=== PATIENT | male | born 1930 | race Caucasian/White ===

== ENCOUNTER 2017-07-09 14:12 | Inpatient (IN) | payer MEDICARE ==
[2016-05-09 17:12] VITALS: Ht 175.3 cm; Wt 74.8 kg
[~2017-07-09] VITALS: Ht 175.3 cm; Wt 74.8 kg
[~2017-07-09 14:12] MED LIST changes: -DILT240C76
[2017-07-09] MEDS ORDERED: NS(*) 0.9% 1000 ML BAG 1,000 ML IV ONE (14:20)
--- NOTE | 2017-07-09 14:23 | ER Report ---
History and Physical Time Seen By MD: 14:22 Hx. of Stated Complaint: from urgent care with possible pneumonia and atrial flutter, "im having trouble taking deep breaths" HPI/ROS 86 year old male sent in from urgent care. [place] today weak unable to get out of bed low grade temp, fever chills cough , difficult to take a breath Remainder of the 14 system rev: Yes (mode on) Allergies: Coded Allergies: Sulfa (Sulfonamide Antibiotics) (Verified Allergy, Severe, 01/25/11) Home Meds Active Scripts Diltiazem Hcl (DILTIAZEM 24HR CD) 240 Mg Cap.er.24h, 1 CAP PO DAILY for 90 Days , #90 CAP.SR.24H 4 Refills Prov:DENISE LUONG MD 05/28/17 Hydrochlorothiazide (HYDROCHLOROTHIAZIDE) 12.5 Mg Capsule, 1 TAB PO QDAY, #90 CAPSULE 4 Refills Prov:DRE LINARES MD 02/27/17 Reported Medications Omeprazole (OMEPRAZOLE) 20 Mg Tablet.dr, 20 MG PO QDAY, TAB 07/09/17 [Brain-Protex] No Conflict Check, 1 TAB PO DAILY 05/08/16 [Skeletal Strength] No Conflict Check, 1 TAB PO DAILY 05/08/16 [Super Supplemental] No Conflict Check, 1 TAB PO DAILY 05/08/16 Gelatin (GELATIN) 600 Mg Capsule, 1300 MG PO DAILY, CAPSULE 05/08/16 Discontinued Reported Medications Diltiazem Hcl (DILTIAZEM 24HR ER) 240 Mg Cap.er.24h 07/09/17 Ranitidine Hcl (ZANTAC) 150 Mg Tablet, 1 TAB PO HS 05/23/17 Psyllium Husk (Metamucil) 3.4 Gram/5.4 Gram Powder, QDAY 10/23/16 Fish Oil/Vit E/Fat No.5/Hc137 (SUPER OMEGA-3 SOFTGEL) 1 Each Capsule, 1 EACH PO DAILY, CAPSULE 05/08/16 Past Medical/Surgical History History of hearing loss, 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 97 104 Resp 18 14 B/P (MAP) 165/129 (141) 165/129 Pulse Ox 97 97 O2 Delivery Nasal Cannula 07/09/17 07/09/17 07/09/17 07/09/17 14:30 14:42 14:45 14:45 Pulse 101 97 Resp 18 17 B/P (MAP) 144/102 (116) Pulse Ox 97 97 O2 Delivery Nasal Cannula O2 Flow Rate 2.0 07/09/17 07/09/17 07/09/17 07/09/17 14:45 14:52 14:57 15:00 Pulse 112 101 Resp 19 17 B/P (MAP) 153/103 (120) 153/96 (115) Pulse Ox 97 07/09/17 07/09/17 07/09/17 07/09/17 15:12 15:15 15:27 15:42 Pulse 101 102 ??? Resp 15 16 B/P (MAP) 150/107 (121) Pulse Ox 97 07/09/17 07/09/17 07/09/17 07/09/17 15:57 16:00 16:05 16:15 Pulse 97 97 Resp 15 16 B/P (MAP) 145/95 (112) 168/115 (132) Pulse Ox 97 97 07/09/17 07/09/17 07/09/17 07/09/17 16:20 16:30 16:35 16:45 Pulse 101 101 Resp 14 25 B/P (MAP) 143/108 (120) 145/89 (107) Pulse Ox 97 07/09/17 07/09/17 07/09/17 07/09/17 16:50 17:00 17:05 17:15 Pulse 85 83 Resp 16 8 B/P (MAP) 145/102 (116) 158/124 (135) 07/09/17 17:20 Pulse 77 Resp 10 Intake and Output 07/09/17 07/09/17 07/10/17 15:00 23:00 07:00 Intake Total 1000 ml Balance 1000 ml Physical Exam 86-year-old male alert anxious mild distress HEENT head normocephalic atraumatic tympanic membranes are non-reddened throat is non-reddened mucous membranes are dry neck is supple no JVD heart rate is regular no murmurs rubs and gallops lungs coarse bilaterally abdomen is soft bowel sounds 4 moves all extremities no peripheral edema Medical Decision Making Data Points Laboratory Hematology Test 07/09/17 13:47 07/09/17 14:41 07/09/17 15:55 Prothrombin Time 14.0 seconds (12.0-14.4) Prothromb Time International Ratio 1.08 Activated Partial Thromboplast Time 33 seconds (23-35) Magnesium Level 1.8 mg/dl (1.7-2.2) Lactate 1.2 mmol/L (0.7-2.1) Urine Color Straw Urine Clarity Clear Urine pH 7.0 pH (4.8-9.5) Urine Specific [place] 1.011 Urine Protein Negative mg/dL (NEGATIVE) Urine Glucose (UA) Negative mg/dL (NEGATIVE) Urine Ketones 20 mg/dL (NEGATIVE) Urine Blood Negative (NEGATIVE) Urine Nitrite Negative (NEGATIVE) Urine Bilirubin Negative (NEGATIVE) Urine Urobilinogen Negative mg/dL (0.2-1.9) Urine Leukocyte Esterase Negative (NEGATIVE) Urine RBC <1 /HPF (0-2/HPF) Urine WBC 1 /HPF (0-5/HPF) Urine Squamous Epithelial Cells Moderate /LPF (</=FEW) Urine Bacteria Negative /HPF (NONE-FEW) Urine Mucus None /HPF (NONE-FEW) Chemistry Test 07/09/17 13:47 07/09/17 14:41 07/09/17 15:55 Prothrombin Time 14.0 seconds (12.0-14.4) Prothromb Time International Ratio 1.08 Activated Partial Thromboplast Time 33 seconds (23-35) Magnesium Level 1.8 mg/dl (1.7-2.2) Lactate 1.2 mmol/L (0.7-2.1) Urine Color Straw Urine Clarity Clear Urine pH 7.0 pH (4.8-9.5) Urine Specific [place] 1.011 Urine Protein Negative mg/dL (NEGATIVE) Urine Glucose (UA) Negative mg/dL (NEGATIVE) Urine Ketones 20 mg/dL (NEGATIVE) Urine Blood Negative (NEGATIVE) Urine Nitrite Negative (NEGATIVE) Urine Bilirubin Negative (NEGATIVE) Urine Urobilinogen Negative mg/dL (0.2-1.9) Urine Leukocyte Esterase Negative (NEGATIVE) Urine RBC <1 /HPF (0-2/HPF) Urine WBC 1 /HPF (0-5/HPF) Urine Squamous Epithelial Cells Moderate /LPF (</=FEW) Urine Bacteria Negative /HPF (NONE-FEW) Urine Mucus None /HPF (NONE-FEW) Coagulation Test 07/09/17 13:47 Prothrombin Time 14.0 seconds Prothromb Time International Ratio 1.08 Activated Partial Thromboplast Time 33 seconds Urinalysis Test 07/09/17 15:55 Urine Color Straw Urine Clarity Clear Urine pH 7.0 pH (4.8-9.5) Urine Specific [place] 1.011 Urine Protein Negative mg/dL (NEGATIVE) Urine Glucose (UA) Negative mg/dL (NEGATIVE) Urine Ketones 20 mg/dL (NEGATIVE) Urine Blood Negative (NEGATIVE) Urine Nitrite Negative (NEGATIVE) Urine Bilirubin Negative (NEGATIVE) Urine Urobilinogen Negative mg/dL (0.2-1.9) Urine Leukocyte Esterase Negative (NEGATIVE) Urine RBC <1 /HPF (0-2/HPF) Urine WBC 1 /HPF (0-5/HPF) Urine Squamous Epithelial Cells Moderate /LPF (</=FEW) Urine Bacteria Negative /HPF (NONE-FEW) Urine Mucus None /HPF (NONE-FEW) EKG/Imaging EKG Interpretation Manuel Patel 1421 A. fib ventricular rate 99 Monitor Interpretation: Atrial Fibrillation Imaging FACILITY: [facility] [place] PATIENT NAME: Manuel Patel : 1930 MR: [id number] V: [id number] EXAM DATE: ORDERING PHYSICIAN: BRITTANIE CALVERT TECHNOLOGIST: Location: [facility] Patient: Manuel Patel : 1930 Visit/Account:[id number] Date of Sevice: 07/09/2017 Exam type: CHEST SINGLE AP History: RESP DISTRESS Comparison: December 25, 2016 Findings: There is mild pleural parenchymal scarring bilaterally. There is no evidence of acute-appearing pulmonary consolidation. The cardiac silhouette is mildly enlarged but unchanged. There are very prominent central pulmonary arteries. Large hiatal hernia noted Old right-sided rib fractures.. IMPRESSION: 1. Mild cardiomegaly and mild prominence of the central pulmonary arteries similar to the prior study Large hiatal hernia Mild chronic pleural parenchyma scarring No evidence of acute infiltrates Report Dictated By: Katty Coppola MD at 07/09/2017 3:00 PM Report E-Signed By: Katty Coppola MD at 07/09/2017 3:04 PM WSN:[id number]: [facility] [place] PATIENT NAME: Manuel Patel : 1930 MR: [id number] V: [id number] EXAM DATE: ORDERING PHYSICIAN: BRITTANIE CALVERT TECHNOLOGIST: Location: [facility] Patient: Manuel Patel : 1930 Visit/Account:[id number] Date of Sevice: 07/09/2017 CT ANGIOGRAM OF THE CHEST WITH INTRAVENOUS CONTRAST, PE PROTOCOL DATE OF EXAM: 07/09/2017 15:06 COMPARISON: Chest radiograph of the same day. INDICATION: sob afib. TECHNIQUE: Contrast enhanced chest CT performed during the injection of 75 ml of Isovue-370. Three-dimensional (MIP) reconstructions were performed. FINDINGS: The central pulmonary arteries are nonspecifically enlarged. There is no pulmonary arterial filling defect. There are a few small scattered pulmonary cysts. Mild bronchial wall thickening most notable at the lung bases. Mild basilar atelectasis. Thyroid: Unremarkable. Thoracic inlet: No adenopathy. Heart and great vessels: Heart size is normal. Prominent coronary atherosclerosis. There is reflux of contrast into the hepatic veins. Mediastinum and fredy: No adenopathy. Lungs and pleura: No adenopathy. Breast and axilla: As above. Bones and soft tissues: No acute osseous abnormality. Multiple old right-sided rib fractures. Multilevel degenerative findings. Old compression deformity at T12. Upper abdomen: Large hiatal hernia. IMPRESSION: 1. Negative for pulmonary arterial embolus. 2. 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 3. Large hiatal hernia. ED Course/Re-evaluation Clinical Indication for ER IV: Hydration ED Course Oxygen supplementation ER 2 L sats over 90% with this giving normal saline IV fluids with treatment stills feels very weak talking with she does not thought she can handle him at home him I did talk to Dr. Emigdio rFanco he agrees to admit from the emergency room Re-evaluation Discussed the patient with Emigdio Franco he will see him in the emergency room Decision to Disposition Date: Jul 09, 2017 Decision to Disposition Time: 17:20 Depart Departure Latest Vital Signs Vital Signs Date Time Temp Pulse Resp B/P (MAP) Pulse Ox O2 Delivery O2 Flow Rate FiO2 07/09/17 17:20 77 10 07/09/17 17:15 158/124 (135) 07/09/17 16:20 97 07/09/17 14:45 Nasal Cannula 2.0 07/09/17 14:14 99.1 Impression: Primary Impression: Atrial flutter Additional Impressions: URI (upper respiratory infection) Weakness Condition: Improved Disposition: Admitted from ER Referrals: DENISE LUONG MD (PCP) Problem Qualifiers BRITTANIE CALVERT Jul 09, 2017 14:23
--- NOTE | 2017-07-09 14:33 | EKG ---
[place] [facility] [place] NAME: EMI YUAN : [id number] MR: [id number] V: [id number] EXAM DATE: ORDERING PHYSICIAN: BRITTANIE CALVERT TECHNOLOGIST: SY Orozco Reason : Blood Pressure : / mmHG Vent. Rate : 099 BPM Atrial Rate : 082 BPM P-R Int : 000 ms QRS Dur : 140 ms QT Int : 364 ms P-R-T Axes : 000 071 037 degrees QTc Int : 467 ms Atrial Flutter with PVC Right bundle branch block Abnormal ECG When compared with ECG of 08-MAY-2016 08:14, Now in atrial flutter and previously was in a NSR T wave inversion less evident in Inferior leads Confirmed by MIKE LOMAS ([id number]) on 07/09/2017 4:14:06 PM Referred By: ENRIKE Confirmed By:MIKE LOMAS
[2017-07-09] MEDS ORDERED: ALBUTEROL/IPRATROPIUM 3 ML NEB NEB ONE (14:35)
[2017-07-09 15:06] LABS: INR 1.08
--- NOTE | 2017-07-09 15:08 | RADIOLOGY IMAGING REPORT ---
FACILITY: [facility] PATIENT NAME: Manuel Patel : 1930 MR: [id number] V: [id number] EXAM DATE: ORDERING PHYSICIAN: BRITTANIE CALVERT TECHNOLOGIST: [place] [facility] [place] Patel : 1930 Visit/Account:[id number] Date of Sevice: 07/09/2017 Exam type: CHEST SINGLE AP History: RESP DISTRESS Comparison: December 25, 2016 Findings: There is mild pleural parenchymal scarring bilaterally. There is no evidence of acute-appearing pulm onary consolidation. The cardiac silhouette is mildly enlarged but unchanged. There are very promin ent central pulmonary arteries. Large hiatal hernia noted Old right-sided rib fractures.. IMPRESSION: 1. Mild cardiomegaly and mild prominence of the central pulmonary arteries similar to the prior study Large hiatal hernia Mild chronic pleural parenchyma scarring No evidence of acute infiltrates Report Dictated By: Katty Coppola MD at 07/09/2017 3:00 PM Report E-Signed By: Katty Coppola MD at 07/09/2017 3:04 PM WSN:[email or web address]
[2017-07-09] MEDS ORDERED: NS 0.9% 150 ML BAG 150 ML ONE (15:35)
[2017-07-09] MEDS ORDERED: IOPAMIDOL 76% 75 ML INFUS BTL 75 ML ONE (15:35)
--- NOTE | 2017-07-09 16:22 | RADIOLOGY IMAGING REPORT ---
FACILITY: [facility] PATIENT NAME: Manuel Patel : 1930 MR: [id number] V: [id number] EXAM DATE: ORDERING PHYSICIAN: BRITTANIE CALVERT TECHNOLOGIST: Location: Patient: Manuel Patel : 1930 Visit/Account:[id number] Date of Sevice: 07/09/2017 CT ANGIOGRAM OF THE CHEST WITH INTRAVENOUS CONTRAST, PE PROTOCOL DATE OF EXAM: 07/09/2017 15:06 COMPARISON: Chest radiograph of the same day. INDICATION: sob afib. TECHNIQUE: Contrast enhanced chest CT performed during the injection of 75 ml of Isovue-370. Three-d imensional (MIP) reconstructions were performed. FINDINGS: The central pulmonary arteries are nonspecifically enlarged. There is no pulmonary arterial filling d efect. There are a few small scattered pulmonary cysts. Mild bronchial wall thickening most notable a t the lung bases. Mild basilar atelectasis. Thyroid: Unremarkable. Thoracic inlet: No adenopathy. Heart and great vessels: Heart size is normal. Prominent coronary atherosclerosis. There is reflux o f contrast into the hepatic veins. Mediastinum and fredy: No adenopathy. Lungs and pleura: No adenopathy. Breast and axilla: As above. Bones and soft tissues: No acute osseous abnormality. Multiple old right-sided rib fractures. Multil evel degenerative findings. Old compression deformity at T12. Upper abdomen: Large hiatal hernia. IMPRESSION: 1. Negative for pulmonary arterial embolus. 2. Nonspecific enlargement of the central pulmonary arteries can be seen with pulmonary chill hyperte nsion. 3. Large hiatal hernia. One of the following dose optimization techniques was utilized in the performance of this exam: Autom ated exposure control; adjustment of the mA and/or kV according to the patient's size; or use of an i terative reconstruction technique. Specific details can be referenced in the facility's radiology C T exam operational policy. Report Dictated By: Nino Gonzalez MD at 07/09/2017 4:04 PM Report E-Signed By: Nino Gonzalez MD at 07/09/2017 4:19 PM WSN:[id number]
[2017-07-09] MEDS ORDERED: DILT240C76 (17:35)
[2017-07-09 17:56] VITALS: BP 161/108
--- NOTE | 2017-07-09 19:00 | History & Physical ---
History of Present Illness History of Present Illness 86yo male with a RBBB and HTN who was sent to the ER from Urgent Care for concern of atrial flutter. He was in his normal state of health until yesterday. He developed a cough, tiredness and felt "dizzy". He denies vertigo or sensation of passing out. This morning, he felt very weak. He had chills and low grade fever. He denies cp/sob/palpitations. However, he feels like he some difficulty taking deep breaths. At Urgent Care, they thought he might have pneumonia, and he also atrial flutter. History Problems: (1) Thoracic outlet syndrome Status: Chronic (2) BPH (benign prostatic hyperplasia) Status: Chronic (3) Asthma Status: Chronic (4) GERD (gastroesophageal reflux disease) Status: Chronic (5) HTN (hypertension) Status: Chronic (6) History of inguinal hernia repair Status: Chronic (7) Hx of transurethral resection of prostate Status: Chronic (8) S/P trigger finger release Status: Chronic (9) Status post carpal tunnel release of both wrists Status: Chronic (10) H/O arthroscopy of right knee Status: Chronic (11) H/O bilateral cataract extraction Status: Chronic Home Meds Active Scripts Diltiazem Hcl (DILTIAZEM 24HR CD) 240 Mg Cap.er.24h, 1 CAP PO DAILY for 90 Days , #90 CAP.SR.24H 4 Refills Prov:DENISE LUONG MD 05/28/17 Hydrochlorothiazide (HYDROCHLOROTHIAZIDE) 12.5 Mg Capsule, 1 TAB PO QDAY, #90 CAPSULE 4 Refills Prov:DRE LINARES MD 02/27/17 Reported Medications Diltiazem Hcl (DILTIAZEM 24HR ER) 240 Mg Cap.er.24h 07/09/17 Ranitidine Hcl (ZANTAC) 150 Mg Tablet, 1 TAB PO HS 05/23/17 Psyllium Husk (Metamucil) 3.4 Gram/5.4 Gram Powder, QDAY 10/23/16 [Brain-Protex] No Conflict Check, 1 TAB PO DAILY 05/08/16 [Skeletal Strength] No Conflict Check, 1 TAB PO DAILY 05/08/16 [Super Supplemental] No Conflict Check, 1 TAB PO DAILY 05/08/16 Gelatin (GELATIN) 600 Mg Capsule, 1300 MG PO DAILY, CAPSULE 1/3/17 Discontinued Reported Medications Fish Oil/Vit E/Fat No.5/Hc137 (SUPER OMEGA-3 SOFTGEL) 1 Each Capsule, 1 EACH PO DAILY, CAPSULE 05/08/16 Allergies: Coded Allergies: Sulfa (Sulfonamide Antibiotics) (Verified Allergy, Severe, 01/25/11) Patient History: Diabetes mellitus (DM) FATHER FH: CHF (congestive heart failure) FATHER FH: brain cancer CHILD (Son) FH: colon cancer BROTHER OR SISTER GRANDMOTHER MS (multiple sclerosis) CHILD (Daughter) Hx Smoking: No Smoking Status: Former Smoker Caffeine Intake: Coffee Caffeine/Cups Per Day: 3-4 Hx Alcohol Use: Yes (daily, scotch or whiskey (couple shots)) Hx Substance Use Disorder: No Review of Systems All Systems Reviewed/Normal: Yes, Except as Noted Exam Vital Signs Vital Signs Date Time Temp Pulse Resp B/P (MAP) Pulse Ox O2 Delivery O2 Flow Rate FiO2 07/09/17 17:56 98.4 88 18 161/108 (125) 95 Nasal Cannula 2.0 General Appearance: Alert, Awake, No Acute Distress (He appears tired) Neuro: No Gross deficits Eyes: PERRLA ENT: Moist Mucous Membranes Cardiovascular: Regular Rate and Rhythm, No JVD Respiratory: Clear to Auscultation GI: Abd Soft and Non-Tender Extremities: No Edema Integumentary: No Jaundice, No Cyanosis Medical Decision Making Data Points Item Value Date Time White Blood Count 4.5 k/uL 07/09/17 1347 Red Blood Count 4.36 M/uL 07/09/17 1347 Hemoglobin 14.4 g/dL 07/09/17 1347 Hematocrit 42.3 % 07/09/17 1347 Mean Corpuscular Volume 96.9 fL H 07/09/17 1347 Mean Corpuscular Hemoglobin 33.1 pg H 07/09/17 1347 Platelet Count 217 K/uL 07/09/17 1347 Neutrophils (%) (Auto) 55.9 % 07/09/17 1347 Lymphocytes (%) (Auto) 21.3 % 07/09/17 1347 Monocytes (%) (Auto) 18.9 % H 07/09/17 1347 Eosinophils (%) (Auto) 3.0 % 07/09/17 1347 Basophils (%) (Auto) 0.9 % 07/09/17 1347 Nucleated RBC Relative Count (auto) 0.1 /100WBC 07/09/17 1347 B-Type Natriuretic Peptide 226 pg/ml H 07/09/17 1347 Troponin I 0.014 ng/ml 07/09/17 1347 Alkaline Phosphatase 77 U/L 07/09/17 1347 Alanine Aminotransferase (ALT/SGPT) 32 U/L 07/09/17 1347 Aspartate Amino Transf (AST/SGOT) 19 U/L 07/09/17 1347 Magnesium Level 1.8 mg/dl 07/09/17 1347 Lactate 1.2 mmol/L 07/09/17 1441 Sodium Level 133 mmol/L L 07/09/17 1347 Potassium Level 3.8 mmol/L 07/09/17 1347 Chloride Level 95 mmol/L L 07/09/17 1347 Carbon Dioxide Level 26 mmol/L 07/09/17 1347 Blood Urea Nitrogen 10 mg/dl 07/09/17 1347 Creatinine 0.90 mg/dl 07/09/17 1347 Glomerular Filtration Rate Calc > 60.0 07/09/17 1347 Random Glucose 90 mg/dl 07/09/17 1347 Urine RBC <1 /HPF 07/09/17 1555 Urine WBC 1 /HPF 07/09/17 1555 Urine Squamous Epithelial Cells Moderate /LPF H 07/09/17 1555 Urine Ketones 20 mg/dL H 07/09/17 1555 Urine Bacteria Negative /HPF 07/09/17 1555 D-Dimer Quantitative (PE/DVT) 0.55 ug/ml H 07/09/17 1347 Prothromb Time International Ratio 1.08 07/09/17 1347 EKG / Imaging EKG Interpretation Vent. Rate : 099 BPM Atrial Rate : 082 BPM P-R Int : 000 ms QRS Dur : 140 ms QT Int : 364 ms P-R-T Axes : 000 071 037 degrees QTc Int : 467 ms Atrial Flutter with PVC Right bundle branch block Abnormal ECG When compared with ECG of 08-MAY-2016 08:14, Now in atrial flutter and previously was in a NSR T wave inversion less evident in Inferior leads Confirmed by MIKE LOMAS ([id number]) on 07/09/2017 4:14:06 PM Imaging Chest CTA - 1. Negative for pulmonary arterial embolus. 2. 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 3. Large hiatal hernia. CXR - 1. Mild cardiomegaly and mild prominence of the central pulmonary arteries similar to the prior study Large hiatal hernia Mild chronic pleural parenchyma scarring No evidence of acute infiltrates Assessment and Plan Problems: (1) Atrial flutter Status: Acute Assessment & Plan: It is unclear how long he has had this rhythm. He had an ECG a year ago that was NSR. He is rate controlled secondary to Diltiazem. Will watch on telemetry get an echo and check a TSH. Will start Xarelto for stroke prophylaxis. Continue diltiazem. (2) Weakness Status: Acute Assessment & Plan: He presented with weakness starting this morning. It could be from atrial flutter, but more likely related to a URI. Will ask OT/PT to evaluate. He see PT as an outpatient for balance problems. (3) URI (upper respiratory infection) Status: Acute Assessment & Plan: He presented with a day of coughing, tiredness, and a low grade fever. He was reportedly negative for influenza at Urgent Care. No infiltrate on CTA of the chest. Will treat him symptomatically. (4) GERD (gastroesophageal reflux disease) Status: Chronic Assessment & Plan: Continue chronic ranitidine. (5) HTN (hypertension) Status: Chronic Assessment & Plan: Continue diltiazem and HCTZ (with parameters). Copies to: DENISE LUONG MD Venous Thromboembolism Antithrombotics Is Pt On Any Antithrombotics?: No Exam Sepsis Risk: No Definite Risk MIKE LOMAS MD Jul 09, 2017 19:00
[2017-07-09 19:54] VITALS: BP 111/70
[2017-07-09] MEDS ORDERED: OMEP-137 PO (20:03)
[2017-07-09] MEDS ORDERED: DILTIAZEM CD 120 MG CAPCR PO SCH (21:00)
[2017-07-09] MEDS ORDERED: RIVAROXABAN 10 MG TAB PO SCH (21:00)
[2017-07-09] MEDS ORDERED: RANITIDINE HCL 150 MG TAB PO SCH (21:00)
[2017-07-09 23:06] VITALS: BP 111/72
[2017-07-10 03:47] VITALS: BP 144/85
[2017-07-10] MEDS ORDERED: ACETAMINOPHEN 325 MG TAB PO PRN (04:05)
[2017-07-10 05:46] LABS: PLATELET COUNT, AUTOMATED 200 K/uL (150-450)
[2017-07-10 08:38] VITALS: BP 109/69
[2017-07-10] MEDS ORDERED: HYDROCHLOROTHIAZIDE 25 MG TAB PO SCH (09:00)
[2017-07-10] MEDS ORDERED: DILTIAZEM CD 120 MG CAPCR PO SCH (09:00)
[2017-07-10 11:12] VITALS: BP 122/73
[2017-07-10] MEDS ORDERED: WARFARIN SOD 5 MG TAB PO SCH (13:00)
--- NOTE | 2017-07-10 13:08 | Hospitalist Depart ---
Discharge Summary Reason for Hosp/Final Diag: (1) Atrial flutter Status: Acute Hospital Course & Plan: It appears by his history he may have had intermittent atrial fibrillation/flutter for upwards of 20-25 years. He had an ECG a year ago that was NSR. He is rate controlled on oral Diltiazem. He did receive a dose of Xarelto for stroke prophylaxis, but had a significant epistaxis. We discussed the need for anticoagulation therapy and he understands very well. At this point, however, will hold on anticoagulation therapy until we can have ENT evaluate the epistaxis. Will also allow him to follow up with his primary care to discuss further. (2) Weakness Status: Acute Hospital Course & Plan: He presented with weakness starting this morning. It could be related to the atrial flutter, but more likely related to a recent URI. OT/PT did evaluate him and felt he was doing well. (3) URI (upper respiratory infection) Status: Acute Hospital Course & Plan: He presented with a day of coughing, tiredness, and a low grade fever. He was reportedly negative for influenza at Urgent Care. No infiltrate on CT pulmonary angiogram of the chest. (4) GERD (gastroesophageal reflux disease) Status: Chronic Hospital Course & Plan: Continue chronic omeprazole. (5) HTN (hypertension) Status: Chronic Hospital Course & Plan: Continue diltiazem and HCTZ. Departure Weight (Pounds): 165 Weight (Ounces): 6.0 Result Diagram: 07/10/17 0505 07/10/17 0505 Item Value Date Time White Blood Count 4.5 k/uL 07/09/17 1347 Hemoglobin 14.4 g/dL 07/09/17 1347 Hematocrit 42.3 % 07/09/17 1347 Platelet Count 217 K/uL 07/09/17 1347 Sodium Level 133 mmol/L L 07/09/17 1347 Potassium Level 3.8 mmol/L 07/09/17 1347 Chloride Level 95 mmol/L L 07/09/17 1347 Carbon Dioxide Level 26 mmol/L 07/09/17 1347 Blood Urea Nitrogen 10 mg/dl 07/09/17 1347 Creatinine 0.90 mg/dl 07/09/17 1347 Glomerular Filtration Rate Calc > 60.0 07/09/17 1347 Random Glucose 90 mg/dl 07/09/17 1347 Calcium Level 8.7 mg/dl 07/09/17 1347 Total Bilirubin 0.9 mg/dl 07/09/17 1347 Aspartate Amino Transf (AST/SGOT) 19 U/L 07/09/17 1347 Alanine Aminotransferase (ALT/SGPT) 32 U/L 07/09/17 1347 Alkaline Phosphatase 77 U/L 07/09/17 1347 Troponin I 0.014 ng/ml 07/09/17 1347 Total Protein 7.7 gm/dl 07/09/17 1347 Albumin 4.1 g/dl 07/09/17 1347 B-Type Natriuretic Peptide 226 pg/ml H 07/09/17 1347 Magnesium Level 1.8 mg/dl 07/09/17 1347 Lactate 1.2 mmol/L 07/09/17 1441 Thyroid Stimulating Hormone (TSH) 1.65 uIU/ml 07/10/17 0505 Urine Mucus None /HPF 07/09/17 1555 Urine Bacteria Negative /HPF 07/09/17 1555 Urine Squamous Epithelial Cells Moderate /LPF H 07/09/17 1555 Urine WBC 1 /HPF 07/09/17 1555 Urine RBC <1 /HPF 07/09/17 1555 Urine Leukocyte Esterase Negative 07/09/17 1555 Urine Urobilinogen Negative mg/dL 07/09/17 1555 Urine Bilirubin Negative 07/09/17 1555 Urine Nitrite Negative 07/09/17 1555 Urine Blood Negative 07/09/17 1555 Urine Ketones 20 mg/dL H 07/09/17 1555 Urine Glucose (UA) Negative mg/dL 07/09/17 1555 Urine Protein Negative mg/dL 07/09/17 1555 Urine Specific [place] 1.011 07/09/17 1555 Urine pH 7.0 pH 07/09/17 1555 Urine Clarity Clear 07/09/17 1555 Urine Color Straw 07/09/17 1555 D-Dimer Quantitative (PE/DVT) 0.55 ug/ml H 07/09/17 1347 Activated Partial Thromboplast Time 33 seconds 07/09/17 1347 Prothromb Time International Ratio 1.08 07/09/17 1347 Prothrombin Time 14.0 seconds 07/09/17 1347 [facility] [address] [place] [address] LARISA TREJO M.D., DIRECTOR OF LABORATORY SERVICES MOE WAYNE M.D., PATHOLOGIST RUN DATE: 07/10/17 Specimen Inquiry Report PAGE 1 RUN TIME: 1001 PATIENT: EMI YUAN ACCT: [id number] LOC: [facility] U : [id number] AGE/SX: 86/M ROOM: 2270 REG : 07/09/[address]: MIKE LOMAS MD : 1930 BED: 270 DIS : STATUS: ADM IN TLOC: SPEC #: [id number] SHAKEEL: 07/09/17 STATUS: RES REQ #: [id number] RECD: 07/09/[address] [facility] [address]: BRITTANIE CALVERT APRN SOURCE: BLOOD PER ENTR: 07/09/17-[address] [facility] [address]: DENISE LUONG MD [facility]: ORDERED: CULT BLOOD Procedure Result Verified BLOOD CULTURE Preliminary 07/10/17-1000 NO GROWTH AFTER 1 DAY, REINCUBATED [facility]* [address] [facility] [place] [address] LARISA TREJO M.D., DIRECTOR OF LABORATORY SERVICES MOE WAYNE M.D., PATHOLOGIST RUN DATE: 07/10/17 Specimen Inquiry Report PAGE 1 RUN TIME: 1000 PATIENT: LISSYEMI Tavares ACCT: [id number] LOC: MED U : [id number] AGE/SX: 86/M ROOM: 2270 REG : 07/09/[address]: MIKE LOMAS MD : 1930 BED: 270 DIS : STATUS: ADM IN TLOC: SPEC #: [id number] SHAKEEL: 07/09/17 STATUS: RES REQ #: [id number] RECD: 07/09/[address] [facility] [address]: BRITTANIE CALVERT APRN SOURCE: BLOOD PER ENTR: 07/09/[address] [facility] [address]: DENISE LUONG MD [facility]: ORDERED: CULT BLOOD Procedure Result Verified BLOOD CULTURE Preliminary 07/10/17-1000 NO GROWTH AFTER 1 DAY, REINCUBATED Imaging PATIENT NAME: Emi Yuan : 1930 MR: [id number] V: [id number] EXAM DATE: ORDERING PHYSICIAN: BRITTANIE CALVERT TECHNOLOGIST: Location: [facility] Patient: Emi Yuan : 1930 Visit/Account:[id number] Date of Sevice: 07/09/2017 Exam type: CHEST SINGLE AP History: RESP DISTRESS Comparison: December 25, 2016 Findings: There is mild pleural parenchymal scarring bilaterally. There is no evidence of acute-appearing pulmonary consolidation. The cardiac silhouette is mildly enlarged but unchanged. There are very prominent central pulmonary arteries. Large hiatal hernia noted Old right-sided rib fractures.. IMPRESSION: 1. Mild cardiomegaly and mild prominence of the central pulmonary arteries similar to the prior study Large hiatal hernia Mild chronic pleural parenchyma scarring No evidence of acute infiltrates Report Dictated By: Katty Coppola MD at 07/09/2017 3:00 PM Report E-Signed By: Katty Coppola MD at 07/09/2017 3:04 PM WSN:[id number] PATIENT NAME: Emi Yuan : 1930 MR: [id number] V: [id number] EXAM DATE: [id number] ORDERING PHYSICIAN: BRITATNIE CALVERT TECHNOLOGIST: Location: [facility] Patient: Emi Yuan : 1930 Visit/Account:[id number] Date of Sevice: 07/09/2017 CT ANGIOGRAM OF THE CHEST WITH INTRAVENOUS CONTRAST, PE PROTOCOL DATE OF EXAM: 07/09/2017 15:06 COMPARISON: Chest radiograph of the same day. INDICATION: sob afib. TECHNIQUE: Contrast enhanced chest CT performed during the injection of 75 ml of Isovue-370. Three-dimensional (MIP) reconstructions were performed. FINDINGS: The central pulmonary arteries are nonspecifically enlarged. There is no pulmonary arterial filling defect. There are a few small scattered pulmonary cysts. Mild bronchial wall thickening most notable at the lung bases. Mild basilar atelectasis. Thyroid: Unremarkable. Thoracic inlet: No adenopathy. Heart and great vessels: Heart size is normal. Prominent coronary atherosclerosis. There is reflux of contrast into the hepatic veins. Mediastinum and fredy: No adenopathy. Lungs and pleura: No adenopathy. Breast and axilla: As above. Bones and soft tissues: No acute osseous abnormality. Multiple old right-sided rib fractures. Multilevel degenerative findings. Old compression deformity at T12. Upper abdomen: Large hiatal hernia. IMPRESSION: 1. Negative for pulmonary arterial embolus. 2. 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 3. Large hiatal hernia. One of the following dose optimization techniques was utilized in the performance of this exam: Automated exposure control; adjustment of the mA and/ or kV according to the patient's size; or use of an iterative reconstruction technique. Specific details can be referenced in the facility's radiology CT exam operational policy. Report Dictated By: Nino Gonzalez MD at 07/09/2017 4:04 PM Report E-Signed By: Nino Gonzalez MD at 07/09/2017 4:19 PM WSN:[id number] EKG PATIENT NAME: EMI YUAN : [id number] MR: [id number] V: [id number] EXAM DATE: ORDERING PHYSICIAN: BRITTANIE CALVERT TECHNOLOGIST: SY Test Reason : Blood Pressure : / mmHG Vent. Rate : 099 BPM Atrial Rate : 082 BPM P-R Int : 000 ms QRS Dur : 140 ms QT Int : 364 ms P-R-T Axes : 000 071 037 degrees QTc Int : 467 ms Atrial Flutter with PVC Right bundle branch block Abnormal ECG When compared with ECG of 08-MAY-2016 08:14, Now in atrial flutter and previously was in a NSR T wave inversion less evident in Inferior leads Confirmed by MIKE LOMAS ([id number]) on 07/09/2017 4:14:06 PM Referred By: ENRIKE Confirmed By:MIKE LOMAS Condition: Improved Discharge: Home Time Spent: > 30 min Discharge Instructions Home Meds Active Scripts Diltiazem Hcl (DILTIAZEM 24HR CD) 240 Mg Cap.er.24h, 1 CAP PO DAILY for 90 Days , #90 CAP.SR.24H 4 Refills Prov:DENISE LUONG MD 05/28/17 Hydrochlorothiazide (HYDROCHLOROTHIAZIDE) 12.5 Mg Capsule, 1 TAB PO QDAY, #90 CAPSULE 4 Refills Prov:DRE LINARES MD 02/27/17 Reported Medications Omeprazole (OMEPRAZOLE) 20 Mg Tablet.dr, 20 MG PO QDAY, TAB 07/09/17 [Brain-Protex] No Conflict Check, 1 TAB PO DAILY 05/08/16 [Skeletal Strength] No Conflict Check, 1 TAB PO DAILY 05/08/16 [Super Supplemental] No Conflict Check, 1 TAB PO DAILY 05/08/16 Gelatin (GELATIN) 600 Mg Capsule, 1300 MG PO DAILY, CAPSULE 05/08/16 Discontinued Reported Medications Diltiazem Hcl (DILTIAZEM 24HR ER) 240 Mg Cap.er.24h 07/09/17 Ranitidine Hcl (ZANTAC) 150 Mg Tablet, 1 TAB PO HS 05/23/17 Psyllium Husk (Metamucil) 3.4 Gram/5.4 Gram Powder, QDAY 10/23/16 Fish Oil/Vit E/Fat No.5/Hc137 (SUPER OMEGA-3 SOFTGEL) 1 Each Capsule, 1 EACH PO DAILY, CAPSULE 05/08/16 Follow up Referrals: [facility] Internal Medicine @ [facility] with Denise Luong Md Otolaryngology @ Ent-Otolaryngology with Godfrey Ortega Jr, Md Diet: Regular, No Added Salt (DANIEL) Activity: As Tolerated, No Exertion Special Instructions: Follow up with Dr. Luong in next 5-7 days or sooner if any problems. Follow up with Dr. Godfrey Ortega (ENT) in next 1-2 weeks regarding recurrent right epistaxis (nosebleeds). Copies to: DENISE LUONG MD; GODFREY ORTEGA JR, MD Venous Thromboembolism Antithrombotics Is Pt On Any Antithrombotics?: No KAJAL SOLIS MD Jul 10, 2017 13:07
--- NOTE | 2017-07-11 10:16 | RADIOLOGY IMAGING REPORT ---
FACILITY: [facility] PATIENT NAME: EMI YUAN : [id number] MR: [id number] V: [id number] EXAM DATE: ORDERING PHYSICIAN: MIKE LOMAS TECHNOLOGIST: Pearl Quinn EXAMINATION:TWO-DIMENSIONAL ECHOCARDIOGRAPH REASON:ATRIAL FLUTTER 2D Measurements (normal values in centimeters) LV endLV endRV endVent.LV PostAorticLeftPercent DiastolicSystolicDiastolicSeptumWallRootAtriumShortening (3.5-5.7)(0.9-2.6)(0.6-1.1)(0.6-1.1)(2.0-3.7)(1.9-4.0)(25-35%) [id number]% STROKE VOLUME: 49ml ESTIMATED EJECTION FRACTION: 67% PARASTERNAL LONG AXIS: Overall left ventricular function does appear to be within normal ranges. There is mild concentric left ventricular thickening. The right ventricle appears to be mildly enlarged. The aortic valve is sclerotic but does not appear to be stenotic. The mitral valve appears to open fairly normally. Left atrium is mildly enlarged. The patient is in atrial flutter. No thrombi are noted but the left atrial appendage is not seen. Color examination of the mitral valve reveals a mild amount of mitral insufficiency present. PARASTERNAL SHORT AXIS: Overall left ventricular function again appears to be within normal ranges. Mild Left ventricular thickening no evidence for any outflow tract obstruction. Right ventricular appears to be mildly enlarged. The aortic valve is mildly sclerotic but not stenotic. It is trileaflet in configuration. Color examination of the tricuspid valve reveals some tricuspid insufficiency. Color examination of the aortic valve was unremarkable. APICAL FOUR AND TWO CHAMBER: Normal left ventricular ejection fraction. Left atrial volume is moderately increased at 37ml/m2. Right atrial volume is mildly increased at 31ml/m2. Right ventricle is mildly enlarged. The left ventricle is normal in size. Aortic valve area was measured within normal range of 2.9cm/2. Tricuspid regurgitation Vmax was measured at 3.01m/sec. Estimated right atrial pressure was 3mm Hg. A mild amount of mitral and tricuspid insufficiency was noted. SUBCOSTAL VIEW: No pericardial diffusion was noted. No atrioseptal or ventriculoseptal defects were appreciated. Strain measurements were done and there is a decreased strain throughout the entire left ventricular. Suggesting decrease in systolic and diastolic function. OVERALL IMPRESSION: 1. Left ventricular ejection fraction measured at 67%. No specific wall motion abnormalities were noted. Left ventricular strain was done, showed some decrease in diastolic function as well as possibly some decrease in systolic function. 2. Patient is in atrial flutter and no thrombi are noted & the left atrial appendage is not seen. 3. There is mild enlargement of the right ventricle and right atrium and mild to moderate enlargement of the left atrium. The left ventricle is normal in size. 4. Mild left ventricular thickening eccentric but slightly more along the posterior wall but no evidence for any outflow tract obstruction. 5. A trileaflet aortic valve with no abnormalities. 6. A trace to mild amount of mitral and tricuspid inefficiency with estimated right ventricular systolic pressures within normal ranges at 35mm Hg. 7. Right ventricular appears to contract normally with a normal TAPSE measured at 2.2. Dictated by: Jenny Barone M.D. on 07/10/2017 at 14:21 Transcribed by: PEDRO on 07/11/2017 at 9:28 Approved by: Jenny Barone M.D. on 07/11/2017 at 10:15 [facility]
[2017-07-12] MEDS ORDERED: INFLUENZA VIRUS VAC 0.5 ML SYR IM ONLY ONE (09:00)
== END 2017-07-10 14:30 | disposition home or self-care (01) | DRG 310 ==
LOC: ER 14:21 → MED 17:23
PROVIDERS: ADMIT Internal Medicine; ATTEND Internal Medicine
DX: I48.92 Unspecified atrial flutter (principal); K21.9 Gastro-esophageal reflux disease without esophagitis; I10 Essential (primary) hypertension; R53.1 Weakness; Z88.2 Allergy status to sulfonamides; J06.9 Acute upper respiratory infection, unspecified; J45.909 Unspecified asthma, uncomplicated; Z87.891 Personal history of nicotine dependence
CPT/HCPCS: 36415; 71045; 71275; 81001; 82040; 82247; 82310; 82374; 82435; 82565; 82947; 83605; 83735; 84075; 84132; 84155; 84295; 84443; 84450; 84460; 84520; 85025; 85610; 85730; 87040; 93005; 93306; 94640; 96360; 96361; 97162; 97165; 99284; J7030; Q9967

== ENCOUNTER → 2017-07-09 | Outpatient (REF) | payer MEDICARE ==
[2016-05-09 17:12] VITALS: BMI 24.4
[~2017-07-09] MED LIST: AZIT-1 PO; AZIT500T44 PO; CEFU500T10 PO; CHOL10005 PO; CIP500 PO; CIPR-214 PO; DILT240C4 PO; DILT240C76; DOCU-416 PO; FAMO20TA28 PO; FISH1CAP22 PO; GELA600C5 PO; HYDR-2966 PO; HYDR-385 PO; HYDR12.556 PO; IBUP-1618 PO; IPRA3AMP21 IH; MULT-1381 PO; OMEG1CAP39 PO; OMEP-137 PO; OMEP-153 PO; OMEP20CA68 PO; PER PO; PHEN200T32 PO; POTA20TA94 PO; PRED20TA6 PO; PSYL660P5; RANI-324 PO; SKELETAL STRENGTH PO; SUPER SUPPLEMENTAL PO; TER2 PO; [UNRECOGNIZED DRUG - OTHER] PO
[2017-07-09 14:30] LABS: PLATELET COUNT, AUTOMATED 217 K/uL (150-450)
== END ==
PROVIDERS: ATTEND Nurse Practitioner Family
DX: R07.9 Chest pain, unspecified (principal); R06.02 Shortness of breath
CPT/HCPCS: 82040; 82247; 82310; 82374; 82435; 82565; 82947; 83880; 84075; 84132; 84155; 84295; 84450; 84460; 84484; 84520; 85025; 85379

== ENCOUNTER → 2017-07-09 | Outpatient (CLI) | payer MEDICARE ==
[2016-05-09 17:12] VITALS: BMI 24.4
== END ==
LOC: AMB 14:00
PROVIDERS: ATTEND Nurse Practitioner
DX: R53.1 Weakness (principal); I48.91 Unspecified atrial fibrillation; R26.81 Unsteadiness on feet
CPT/HCPCS: A0425; A0427

== ENCOUNTER → 2017-07-18 | Outpatient (CLI) | payer MEDICARE ==
[2016-05-09 17:12] VITALS: BMI 24.4
[~2017-07-18] MED LIST changes: +DILT240C76
--- NOTE | 2017-07-18 11:18 | EKG ---
FACILITY: [facility] PATIENT NAME: EMI YUAN : [id number] MR: [id number] V: [id number] EXAM DATE: ORDERING PHYSICIAN: DENISE LUONG TECHNOLOGIST: DONATO Test Reason : AFIB Blood Pressure : / mmHG Vent. Rate : 078 BPM Atrial Rate : 300 BPM P-R Int : 000 ms QRS Dur : 148 ms QT Int : 432 ms P-R-T Axes : 268 076 002 degrees QTc Int : 492 ms Atrial flutter with variable AV block Right bundle branch block When compared with ECG of 09-JUL-2017 14:21, Relativley unchanged Confirmed by MIKE LOMAS ([id number]) on 07/18/2017 12:36:01 PM Referred By: AG Confirmed By:MIKE LOMAS
== END ==
LOC: RESP 10:50
PROVIDERS: ATTEND Family Medicine
DX: I44.2 Atrioventricular block, complete (principal)

== ENCOUNTER 2017-08-15 09:00 | Outpatient (RCR) | payer MEDICARE ==
[2016-05-09 17:12] VITALS: BMI 24.4
--- NOTE | 2017-05-22 15:07 | PT INITIAL EVALUATION ---
MEDICAL DIAGNOSIS: balance disorder, falls, back pain TREATMENT DIAGNOSIS: same DATE OF ONSET: 05/21/15 SUBJECTIVE: Manuel Patel presents to physical therapy with complaints of decreased balance strategies and low back pain that started approximately 2 years ago. He reports that he had one fall approximately 2 years ago in August 2015. He reports that he has increased low back pain with standing, walking, and bending. He reports that he has improved pain with sitting and lying. He denies the following symptoms: night pain, unexplained weight loss, surgery, or accidents. He reports that his bladder and gait control is normal. He reports that the pain feels better with improved posture mechanics. He denies any numbness or tingling. With the aggravating factors or activities, he rates the low back pain to be 5/10. He reports that he has difficult with his balance when he goes up and down curbs or up and down stairs without a handrail. . Pain location is L2-L5 and described as achy. Pain scale is 0 on a ten point pain scale. REHAB PROBLEM LIST: Increased Pain Decreased ROM Decreased Strength Decreased Endurance Decreased Balance Decreased Function Decreased ADL's Decreased Mobility Decreased Gait PREVIOUS MEDICAL HISTORY: See EMR OCCUPATION: Retired OBJECTIVE: Posture: He demonstrated increased rounded shoulder, increased thoracic kyphosis , forward head, and decreased lumbar lordosis. ROM: Trunk AROM: flexion: NIL normal end feel. extension: moderate restriction with muscular end feel. side gliding R: minimal restriction with empty end feel. side gliding L: NIL with normal end feel. Strength: B hip flexion, extension, abduction, B knee flexion, B ankle DF: 4/5. B hip adduction, B knee extension, and B PF: 4+/5. No pain with MMT's. Special Tests: Repeated extension in standing: muscular end feel during the test and better following the test with increased AROM into trunk extension and side gliding R following the test. Mobility: Independent Gait: He demonstrated the following gait mechanics without an AD: increased thoracic kyphosis, trunk flexed, equal step lengths, decreased velocity, increased base of support, and decreased B pelvic rotation Balance: Firm surface, eyes opened, normal stance: 60 seconds. Firm surface, eyes opened, narrow stance: 30 seconds. Firm surface, eyes closed, normal stance: 5 seconds. Compliant surface, normal stance, eyes opened: 10 seconds. He could not hold tandem stance, on firm surface, and eyes opened even for a second. ASSESSMENT: Alhaji will benefit from skilled physical therapy addressing the listed impairments to improve function and QOL. Based on the examination, it appears that his provisional classification is a posterior derangement that responded well (increased trunk AROM and decreased pain) when extension based principles were applied. Short Term Goals 2 weeks: Pt will demonstrate centralized low back pain to improve function and QOL. 4 weeks: Pt will demonstrate abolished low back pain to improve function and QOL. 6 weeks: Pt will demonstrate improved balance strategies in all conditions from baseline to 45 to 60 seconds to improve function and QOL. Patient's Goals improve back pain and improve balance PLAN: Patient to be seen for Manual Therapy/STM/MET Strengthening/condition Range of Motion Spinal Stabilization Work Hardening/Cond Stretching Neuromuscular Re-ed Closed Chain Program Posture/Body mechanics Gait Trg/Balance Trg Home Exercise Program Therapeutic Activities 2x/Week for 6 Weeks If you have any questions, comments, or concerns about this report or plan, please contact me at . Thank you, oJse Houston, PT, DPT MTDD
--- NOTE | 2017-06-21 17:13 | PT PLAN OF CARE ---
Physician: Jennyfer Vee MD Patient is being seen: 2x/week Therapist: Jose Houston, PT, DPT Medical Diagnosis: balance disorder, falls, back pain Treatment Diagnosis: same Date of Onset: 05/21/15 Date of Initial Evaluation: 05/21/17 Date patient was last seen: 06/20/17 Number of treatments: 10 Number of cancellations/No shows: 0 INTERVENTIONS: Manual Therapy/STM/MET Strengthening/condition Range of Motion Spinal Stabilization Work Hardening/Cond Stretching Neuromuscular Re-ed Closed Chain Program Posture/Body mechanics Gait Trg/Balance Trg Home Exercise Program Therapeutic Activities GOALS: 2 weeks: Pt will demonstrate centralized low back pain to improve function and QOL. Met 4 weeks: Pt will demonstrate abolished low back pain to improve function and QOL. Not Met; progressing 6 weeks: Pt will demonstrate improved balance strategies in all conditions from baseline to 45 to 60 seconds to improve function and QOL. Not Met; progressing PATIENT'S GOAL: improve back pain and improve balance: progressing Status of Patient's Goals: Progressing well Patient Compliance: Fair Prognosis: Good Reasons for continuing therapy: This is a progress note for Manuel Patel. He reports that he is doing really well. He denies any low back pain. He reports that he continues to feel the low back pain with prolonged standing. He reports that he is not performing his specific exercise as prescribed and is just performing the specific exercise sparely throughout the week when he should be performing it every 1-2 hours X 15 reps. However, he has demonstrated centralized low back pain with a directional preference, which is a parker indication for an excellent prognosis, if he would perform his single specific exercise as prescribed. He has demonstrated improved trunk AROM in all directions. He has also demonstrated improved balance strategies. We will continue to improve gait, balance, and fully abolish his low back symptoms especially with standing to return him to prior level of function. Posture: He demonstrated increased rounded shoulder, increased thoracic kyphosis , forward head, and decreased lumbar lordosis. ROM: Trunk AROM: flexion: NIL normal end feel. extension: minimal restriction with muscular end feel. side gliding R: NIL with muscular end feel. side gliding L: NIL with normal end feel. Strength: B hip flexion, extension, abduction, B knee flexion, B ankle DF: 4/5. B hip adduction, B knee extension, and B PF: 4+/5. No pain with MMT's. Special Tests: Repeated extension in standing: muscular end feel during the test and better following the test with increased AROM into trunk extension and side gliding R following the test. Mobility: Independent If you have any questions, please contact me at [phone]. Thank you, Jose Houston, PT, DPT MARINO
--- NOTE | 2017-08-08 10:34 | PT PLAN OF CARE ---
Physician: Jennyfer Vee MD Patient is being seen: 2x/week Therapist: Jose Houston, PT, DPT Medical Diagnosis: balance disorder, falls, back pain Treatment Diagnosis: same Date of Onset: 05/21/15 Date of Initial Evaluation: 05/21/17 Date patient was last seen: 08/08/17 Number of treatments: 20 Number of cancellations/No shows: 1 INTERVENTIONS: Manual Therapy/STM/MET Strengthening/condition Range of Motion Spinal Stabilization Work Hardening/Cond Stretching Neuromuscular Re-ed Closed Chain Program Posture/Body mechanics Gait Trg/Balance Trg Home Exercise Program Therapeutic Activities GOALS: 2 weeks: Pt will demonstrate centralized low back pain to improve function and QOL. Met 4 weeks: Pt will demonstrate abolished low back pain to improve function and QOL. Not Met; progressing 6 weeks: Pt will demonstrate improved balance strategies in all conditions from baseline to 45 to 60 seconds to improve function and QOL. Not Met; progressing PATIENT'S GOAL: improve back pain and improve balance: progressing Status of Patient's Goals: Progressing well Patient Compliance: Fair Prognosis: Good Reasons for continuing therapy: This is a progress note for Manuel Patel. He reports that he continues to have low back pain with static standing. Otherwise , he reports that he feels like the low back pain is getting better. He reports that he feels like his balance is getting back to normal. Furthermore, he reports that he continues to have difficulty with getting in and out of his bath tub and going up and down stairs. He reports that he has been performing his home exercise program. He reports that he has 1-2/10 low back pain with static standing today. We reassessed his low back pain and it appears that his provisional classification of derangement in the posterior lateral versus the posterior region that we originally thought. Furthermore, he is independent on his new specific exercise and we were able to abolish his low back pain with static standing. We would like to see him 4 more visits in order to verify his directional preference and work with stairs in order to get him confident in doing so prior to discharge. Posture: He demonstrated increased rounded shoulder, increased thoracic kyphosis , forward head, and decreased lumbar lordosis. ROM: Trunk AROM: flexion: NIL normal end feel. extension: minimal restriction with muscular end feel. side gliding R: NIL with muscular end feel. side gliding L: NIL with normal end feel. Strength: B hip flexion, extension, abduction, B knee flexion, B ankle DF: 4/5. B hip adduction, B knee extension, and B PF: 4+/5. No pain with MMT's. Special Tests: Repeated extension in standing: muscular end feel during the test and better following the test with increased AROM into trunk extension and side gliding R following the test. Mobility: Independent If you have any questions, please contact me at [phone]. Thank you, Jose Houston, PT, DPT [facility]
[~2017-08-15 09:00] MED LIST changes: +CALC1TAB32 PO; +CYA1000 PO; +OMEP-125 PO; -RANI-324 PO; +RANI-366 PO; +RANI-375 PO; +RIVA20TA PO
== END 2017-08-19 ==
LOC: PT 09:00
PROVIDERS: ATTEND Family Medicine
DX: M54.9 Dorsalgia, unspecified (principal); R26.89 Other abnormalities of gait and mobility; W19.XXXA Unspecified fall, initial encounter; R42 Dizziness and giddiness
CPT/HCPCS: 97162

== ENCOUNTER → 2017-08-22 | Outpatient (CLI) | payer MEDICARE ==
[2016-05-09 17:12] VITALS: BMI 24.4
[2017-08-22 11:14] LABS: PLATELET COUNT, AUTOMATED 296 K/uL (150-450)
== END ==
LOC: LAB 10:29
PROVIDERS: ATTEND Family Medicine
DX: I10 Essential (primary) hypertension (principal)
CPT/HCPCS: 36415; 82310; 82374; 82435; 82565; 82947; 84132; 84295; 84520; 85025

== ENCOUNTER 2017-08-27 09:27 | Emergency (ER) | payer MEDICARE ==
[2016-05-09 17:12] VITALS: Wt 65.8 kg
[2017-08-27] MEDS ORDERED: ASPIRIN 81 MG CHEW PO ONE (09:45)
[2017-08-27] MEDS ORDERED: NITROGLYCERIN 0.4 MG SUBL SL SCH (09:45)
--- NOTE | 2017-08-27 09:46 | ER Report ---
History and Physical Time Seen By MD: 09:44 Hx. of Stated Complaint: PATIENT WAS IN OUTPATIENT REHAB AND BECAME DIZZY AND HAVING WHAT HE DESCRIBES HEARTBURN. REHAB STAFF WAS ALSO CONCERNED ABOUT HIS BLOOD PRESSURE HPI/ROS Patient is an 86-year-old male here with complaints of intermittent chest pain which started this morning at approximately 7 AM. Patient describes the pain as midsternal, burning sensation like acid reflux. He was sent here from outpatient rehab due to his symptoms.. He denies prior history of myocardial infarction or stent placement however he does have history of an abnormal heart rhythm for which he is on xarelto. Patient is alert and oriented in no acute distress, denies pain currently and did not receive nitroglycerin or aspirin. Patient is hemodynamically stable at time of evaluation. Allergies: Coded Allergies: Sulfa (Sulfonamide Antibiotics) (Verified Allergy, Severe, 01/25/11) Home Meds Active Scripts Rivaroxaban 20 Mg (XARELTO 20 MG) 20 Mg Tablet, 1 TAB PO QDAY for 30 Days, #30 TAB 2 Refills Prov:DENISE LUONG MD 08/01/17 Diltiazem Hcl (DILTIAZEM 24HR CD) 240 Mg Cap.er.24h, 1 CAP PO DAILY for 90 Days , #90 CAP.SR.24H 4 Refills Prov:DENISE LUONG MD 05/28/17 Hydrochlorothiazide (HYDROCHLOROTHIAZIDE) 12.5 Mg Capsule, 1 TAB PO QDAY, #90 CAPSULE 4 Refills Prov:DRE LINARES MD 02/27/17 Reported Medications Omeprazole (OMEPRAZOLE) 20 Mg Capsule.dr, 1 CAP PO BID, CAP 08/01/17 Cyanocobalamin (Vitamin B-12) (VITAMIN B-12) 1,000 Mcg Tablet, 1 TAB PO DAILY 08/01/17 Cholecalciferol (Vitamin D3) (VITAMIN D3) 1,000 Unit Tablet, 1 TAB PO DAILY, TAB 08/01/17 Calcium Carb & Cit/Vitamin D3 (CALCIUM + D3 ER TABLET) 1 Each Tablet.er, 1 TAB PO DAILY 08/01/17 [Brain-Protex] No Conflict Check, 1 TAB PO DAILY 05/08/16 [Skeletal Strength] No Conflict Check, 1 TAB PO DAILY 05/08/16 [Super Supplemental] No Conflict Check, 1 TAB PO DAILY 05/08/16 Gelatin (GELATIN) 600 Mg Capsule, 1300 MG PO DAILY, CAPSULE 05/08/16 Past Medical/Surgical History Patient has a history significant for atrial flutter, asthma, GERD, prior hernia repair Reviewed Nurses Notes: Yes Old Medical Records Reviewed: Yes Hx Smoking: No Smoking Status: Former Smoker Hx Substance Use Disorder: No Hx Alcohol Use: Yes (daily, scotch or whiskey (couple shots)) Constitutional Vital Sign - Last 24 Hours 08/27/17 08/27/17 08/27/17 08/27/17 09:30 09:33 09:45 09:57 Temp 97.9 Pulse 103 89 Resp 24 15 B/P (MAP) 162/91 (114) 132/98 (109) Pulse Ox 91 92 O2 Delivery Room Air 08/27/17 08/27/17 08/27/17 08/27/17 10:00 10:27 10:30 10:45 Pulse 79 Resp 13 B/P (MAP) 147/88 (107) 120/87 (98) 136/81 (99) Pulse Ox 92 08/27/17 08/27/17 08/27/17 08/27/17 10:57 11:00 11:15 11:20 Pulse 73 69 Resp 22 B/P (MAP) 134/96 (109) 141/106 (118) Pulse Ox 92 08/27/17 08/27/17 08/27/17 08/27/17 11:25 11:30 11:45 11:55 Pulse 72 71 Resp 7 B/P (MAP) 137/104 (115) 145/86 (105) Pulse Ox 92 91 08/27/17 08/27/17 08/27/17 08/27/17 12:00 12:15 12:25 12:30 Pulse 72 Resp 13 B/P (MAP) 138/82 (100) 131/92 (105) 132/96 (108) Pulse Ox 93 08/27/17 08/27/17 08/27/17 12:45 12:55 13:00 Pulse 72 Resp 18 B/P (MAP) 150/83 (105) 132/95 (107) Pulse Ox 91 Physical Exam General Appearance: The patient is alert, has no immediate need for airway protection and no signs of toxicity. Eyes: Pupils equal and round no pallor or injection. ENT, Mouth: Mucous membranes are moist. Respiratory: There are no retractions, lungs are clear to auscultation. Cardiovascular: Regular rate and rhythm. [ ] Gastrointestinal: Abdomen is soft and non tender, no masses, bowel sounds normal. Neurological: No focal neuro deficits Skin: Warm and dry, no rashes. Musculoskeletal: Neck is supple non tender. Extremities are nontender, nonswollen and have full range of motion. DIFFERENTIAL DIAGNOSIS: After history and physical exam differential diagnosis was considered for chest pain including but not limited to myocardial ischemia, pericarditis pulmonary embolus, chest wall pain, pleural inflammation and pulmonary infectious causes. Medical Decision Making Data Points Result Diagram: 08/27/17 0946 08/27/17 0946 Laboratory Hematology Test 08/27/17 09:46 08/27/17 11:59 Red Blood Count 4.73 M/uL (4.00-5.60) Mean Corpuscular Volume 93.5 fL (80.0-96.0) Mean Corpuscular Hemoglobin 31.9 pg (26.0-33.0) Mean Corpuscular Hemoglobin Concent 34.1 g/dL (32.0-36.0) Red Cell Distribution Width 14.6 % (11.5-14.5) Mean Platelet Volume 8.0 fL (7.2-11.1) Neutrophils (%) (Auto) 60.5 % (39.4-72.5) Lymphocytes (%) (Auto) 23.3 % (17.6-49.6) Monocytes (%) (Auto) 12.9 % (4.1-12.4) Eosinophils (%) (Auto) 2.7 % (0.4-6.7) Basophils (%) (Auto) 0.6 % (0.3-1.4) Nucleated RBC Relative Count (auto) 0.0 /100WBC Neutrophils # (Auto) 3.3 K/uL (2.0-7.4) Lymphocytes # (Auto) 1.3 K/uL (1.3-3.6) Monocytes # (Auto) 0.7 K/uL (0.3-1.0) Eosinophils # (Auto) 0.1 K/uL (0.0-0.5) Basophils # (Auto) 0.0 K/uL (0.0-0.1) Nucleated RBC Absolute Count (auto) 0.00 K/uL Sodium Level 139 mmol/L (137-145) Potassium Level 4.2 mmol/L (3.5-5.0) Chloride Level 98 mmol/L (98-107) Carbon Dioxide Level 30 mmol/L (22-30) Blood Urea Nitrogen 18 mg/dl (9-21) Creatinine 1.00 mg/dl (0.66-1.25) Glomerular Filtration Rate Calc > 60.0 Random Glucose 101 mg/dl (75-110) Calcium Level 10.1 mg/dl (8.4-10.2) Total Bilirubin 0.9 mg/dl (0.2-1.3) Aspartate Amino Transf (AST/SGOT) 23 U/L (0-35) Alanine Aminotransferase (ALT/SGPT) 22 U/L (0-56) Alkaline Phosphatase 70 U/L (0-126) Total Protein 7.3 gm/dl (6.3-8.2) Albumin 3.8 g/dl (3.5-5.0) Troponin I < 0.012 ng/ml Chemistry Test 08/27/17 09:46 08/27/17 11:59 White Blood Count 5.4 k/uL (4.5-11.0) Red Blood Count 4.73 M/uL (4.00-5.60) Hemoglobin 15.1 g/dL (14.0-18.0) Hematocrit 44.2 % (42.0-52.0) Mean Corpuscular Volume 93.5 fL (80.0-96.0) Mean Corpuscular Hemoglobin 31.9 pg (26.0-33.0) Mean Corpuscular Hemoglobin Concent 34.1 g/dL (32.0-36.0) Red Cell Distribution Width 14.6 % (11.5-14.5) Platelet Count 272 K/uL (150-450) Mean Platelet Volume 8.0 fL (7.2-11.1) Neutrophils (%) (Auto) 60.5 % (39.4-72.5) Lymphocytes (%) (Auto) 23.3 % (17.6-49.6) Monocytes (%) (Auto) 12.9 % (4.1-12.4) Eosinophils (%) (Auto) 2.7 % (0.4-6.7) Basophils (%) (Auto) 0.6 % (0.3-1.4) Nucleated RBC Relative Count (auto) 0.0 /100WBC Neutrophils # (Auto) 3.3 K/uL (2.0-7.4) Lymphocytes # (Auto) 1.3 K/uL (1.3-3.6) Monocytes # (Auto) 0.7 K/uL (0.3-1.0) Eosinophils # (Auto) 0.1 K/uL (0.0-0.5) Basophils # (Auto) 0.0 K/uL (0.0-0.1) Nucleated RBC Absolute Count (auto) 0.00 K/uL Glomerular Filtration Rate Calc > 60.0 Calcium Level 10.1 mg/dl (8.4-10.2) Total Bilirubin 0.9 mg/dl (0.2-1.3) Aspartate Amino Transf (AST/SGOT) 23 U/L (0-35) Alanine Aminotransferase (ALT/SGPT) 22 U/L (0-56) Alkaline Phosphatase 70 U/L (0-126) Total Protein 7.3 gm/dl (6.3-8.2) Albumin 3.8 g/dl (3.5-5.0) Troponin I < 0.012 ng/ml EKG/Imaging EKG Interpretation Atrial flutter without ischemic changes Monitor Interpretation: Atrial Flutter ED Course/Re-evaluation ED Course Patient is in the 86-year-old male here with complaints of midepigastric chest pain which she describes as his regular as reflux symptoms. She describes that the pain started this morning at approximately 7 AM and has since relieved. Patient was well-appearing at time of evaluation and in no acute distress. Patient remained hemodynamically stable during evaluation.. I obtained a 2 set cardiac enzymes which were both negative. EKG showed atrial flutter which is consistent with prior history. He was recently evaluated by cardiology for his atrial flutter but at that time decided not to intervene. Chest x-ray showed no acute findings. I discussed the findings with the patient and voiced understanding. 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 Re-evaluation Patient was re evaluated multiple times during ED course Decision to Disposition Date: Aug 27, 2017 Decision to Disposition Time: 13:18 Depart Departure Latest Vital Signs Vital Signs Date Time Temp Pulse Resp B/P (MAP) Pulse Ox O2 Delivery O2 Flow Rate FiO2 08/27/17 13:00 132/95 (107) 08/27/17 12:55 72 18 91 08/27/17 09:30 97.9 Room Air Impression: Primary Impression: Chest pain Condition: Improved Disposition: HOME OR SELF-CARE Referrals: DENISE LUONG MD (PCP) Patient Instructions: Chest Pain (ED) Additional Instructions: Please continue your current medications as prescribed. He is return promptly if he develops any chest pain, shortness breath, sweating, numbness or tingling in her extremities, abdominal pain, jaw pain, weakness. Please follow-up with your family doctor and cardiology for further care and management CATHERINE GARCIA DO Aug 27, 2017 09:46
--- NOTE | 2017-08-27 09:55 | EKG ---
FACILITY: [facility] - [place] PATIENT NAME: EMI YUAN : [id number] MR: [id number] V: [id number] EXAM DATE: ORDERING PHYSICIAN: CATHERINE GARCIA TECHNOLOGIST: HARRIETT Test Reason : CP Blood Pressure : / mmHG Vent. Rate : 093 BPM Atrial Rate : 312 BPM P-R Int : 000 ms QRS Dur : 144 ms QT Int : 384 ms P-R-T Axes : 000 037 004 degrees QTc Int : 477 ms Atrial flutter with variable AV block with premature ventricular or aberrantly conducted complexes Right bundle branch block Abnormal ECG Confirmed by GEORGE REDDY ([id number]) on 08/29/2017 12:26:30 PM Referred By: JOSE Confirmed By:GEORGE REDDY
[2017-08-27 09:57] LABS: PLATELET COUNT, AUTOMATED 272 K/uL (150-450)
--- NOTE | 2017-08-27 11:02 | RADIOLOGY IMAGING REPORT ---
FACILITY: [facility] - [place] PATIENT NAME: Manuel Patel : 1930 MR: [id number] V: [id number] EXAM DATE: ORDERING PHYSICIAN: CATHERINE GARCIA TECHNOLOGIST: Location: [facility] [place] Patient: Manuel Patel : 1930 Visit/Account:[id number] Date of Sevice: 08/27/2017 Exam type: CHEST PA AND LAT History: Chest Pain Comparison: July 09, 2017. And December 25, 2016 Findings: Mild pleural parenchymal scarring again noted bilaterally. There is no evidence of acute appearing i nfiltrates, pleural effusions or overt pulmonary edema. No evidence of a pneumothorax or pneumomedia stinum. Cardiac silhouette is mildly enlarged but unchanged. There is moderate ectasia the thoracic aorta Large hiatal hernia again noted. There are old right-sided rib fractures and old compression fractures at the thoracolumbar junction IMPRESSION: 1. Mild pleural particle scarring bilaterally although no evidence of acute pulmonary consolidation Additional chronic findings as described Report Dictated By: Katty Coppola MD at 08/27/2017 10:42 AM Report E-Signed By: Katty Coppola MD at 08/27/2017 10:45 AM WSN:[email or web address]
[2017-08-27 13:00] VITALS: BP 132/95
== END 2017-08-27 13:21 | disposition home or self-care (01) ==
LOC: ER 09:39
DX: R07.89 Other chest pain (principal)
CPT/HCPCS: 36415; 71046; 84484; 85025; 93005; 99284; A9270; 82040; 82247; 82310; 82374; 82435; 82565; 82947; 84075; 84132; 84155; 84295; 84450; 84460; 84520

== ENCOUNTER 2017-09-05 09:00 | Outpatient (RCR) | payer MEDICARE ==
[2016-05-09 17:12] VITALS: BMI 24.4
--- NOTE | 2017-08-21 10:51 | PT PLAN OF CARE ---
Physician: Jennyfer Vee MD Patient is being seen: 2x/week Therapist: Jose Houston, PT, DPT Medical Diagnosis: balance disorder, falls, back pain Treatment Diagnosis: same Date of Onset: 05/21/15 Date of Initial Evaluation: 05/21/17 Date patient was last seen: 08/20/17 Number of treatments: 22 Number of cancellations/No shows: 1 INTERVENTIONS: Manual Therapy/STM/MET Strengthening/condition Range of Motion Spinal Stabilization Work Hardening/Cond Stretching Neuromuscular Re-ed Closed Chain Program Posture/Body mechanics Gait Trg/Balance Trg Home Exercise Program Therapeutic Activities GOALS: 2 weeks: Pt will demonstrate centralized low back pain to improve function and QOL. Met 4 weeks: Pt will demonstrate abolished low back pain to improve function and QOL. Not Met; progressing 6 weeks: Pt will demonstrate improved balance strategies in all conditions from baseline to 45 to 60 seconds to improve function and QOL. Not Met; progressing PATIENT'S GOAL: improve back pain and improve balance: progressing Status of Patient's Goals: Progressing well Patient Compliance: Fair Prognosis: Good Reasons for continuing therapy: This is a progress note for Manuel Patel. He reports that he continues to have low back pain with static standing (changes based on the day, but feels like it is getting better). Otherwise, he reports that he feels like the low back pain is getting better. He reports that he feels like his balance is getting back to normal. Furthermore, he reports that he continues to have difficulty with getting in and out of his bath tub and going up and down stairs. He reports that he has been performing his home exercise program. He reports that he has 1-2/10 low back pain with static standing today. We reassessed his low back pain and it appears that his provisional classification of derangement in the posterior lateral versus the posterior region that we originally thought. Furthermore, he is independent on his new specific exercise and we were able to abolish his low back pain with static standing. We would like to see him 1-2 more visits in order to develop independence on his home exercise program. Posture: He demonstrated increased rounded shoulder, increased thoracic kyphosis , forward head, and decreased lumbar lordosis. ROM: Trunk AROM: flexion: NIL normal end feel. extension: minimal restriction with muscular end feel. side gliding R: NIL with muscular end feel. side gliding L: NIL with normal end feel. Strength: B hip flexion, extension, abduction, B knee flexion, B ankle DF: 4/5. B hip adduction, B knee extension, and B PF: 4+/5. No pain with MMT's. Special Tests: Repeated extension in standing: muscular end feel during the test and better following the test with increased AROM into trunk extension and side gliding R following the test. Mobility: Independent If you have any questions, please contact me at [phone]. Thank you, Jose Houston, PT, DPT MTDD
--- NOTE | 2017-09-06 09:37 | PT PLAN OF CARE ---
Physician: Jennyfer Vee MD Patient is being seen: 2x/week Therapist: Jose Houston, PT, DPT Medical Diagnosis: balance disorder, falls, back pain Treatment Diagnosis: same Date of Onset: 05/21/15 Date of Initial Evaluation: 05/21/17 Date patient was last seen: 09/05/17 Number of treatments: 27 Number of cancellations/No shows: 0 INTERVENTIONS: Manual Therapy/STM/MET Strengthening/condition Range of Motion Spinal Stabilization Work Hardening/Cond Stretching Neuromuscular Re-ed Closed Chain Program Posture/Body mechanics Gait Trg/Balance Trg Home Exercise Program Therapeutic Activities GOALS: 2 weeks: Pt will demonstrate centralized low back pain to improve function and QOL. MET 4 weeks: Pt will demonstrate abolished low back pain to improve function and QOL. MET 6 weeks: Pt will demonstrate improved balance strategies in all conditions from baseline to 45 to 60 seconds to improve function and QOL. MET PATIENT'S GOAL: improve back pain and improve balance: MET Status of Patient's Goals: MET Patient Compliance: Good Prognosis: Good Reasons for continuing therapy: Reasons for continuing therapy: This is a discharge note for Manuel Patel. He reports that he is doing well. He reports that he feels like he is independent on his home exercise program. He reports that he feels like his back is doing well. He denies any low back pain. He reports that he feels like his balance and strength along with walking has improved a lot over the last few months. He reports that he feels like he is more upright.He has demonstrated significant improvements in physical therapy in the following areas: increased balance strategies in all conditions, increased core and B LE strength, increased gait mechanics, abolished low back pain, independent on his home exercise program, and closer to returning to prior level of function. He has met all of his goals. As a result, he will be discharged from PT to [facility]. Posture: He demonstrated increased rounded shoulder, increased thoracic kyphosis , forward head, and decreased lumbar lordosis. ROM: Trunk AROM: flexion: NIL normal end feel. extension: NIL with muscular end feel. side gliding R: NIL with muscular end feel. side gliding L: NIL with normal end feel. Strength: B hip flexion, extension, abduction, B knee flexion, B ankle DF: 4+/ 5. B hip adduction, B knee extension, and B PF: 4+/5. No pain with MMT's. Mobility: Independent If you have any questions, please contact me at [phone]. Thank you, Jose Houston, PT, DPT [facility]
== END 2017-09-05 18:00 | disposition home or self-care (01) ==
LOC: PT 09:00
PROVIDERS: ATTEND Family Medicine
DX: M54.5 Low back pain (principal); R26.89 Other abnormalities of gait and mobility; W19.XXXA Unspecified fall, initial encounter; R42 Dizziness and giddiness

== ENCOUNTER 2017-10-07 13:28 | Emergency (ER) | payer MEDICARE ==
[2016-05-09 17:12] VITALS: Wt 74.8 kg
--- NOTE | 2017-10-07 13:30 | ER Report ---
History and Physical Time Seen By MD: 13:30 HPI/ROS CHIEF COMPLAINT: Constipation HISTORY OF PRESENT ILLNESS: Patient reports no bowel movement in the last 3 days along with rectal pressure and his abdominal cramping. Currently the patient has no abdominal pain but is still feeling rectal pressure. He did try [id number] remedies at home without success. Patient only surgical history is for a left inguinal repair. He has no pain to that site. Patient denies fevers or chills. Denies chest pain or shortness of breath. REVIEW OF SYSTEMS: Respiratory: No cough, no dyspnea. Cardiovascular: No chest pain, no palpitations. Gastrointestinal: Constipation Musculoskeletal: No back pain. Allergies: Coded Allergies: Sulfa (Sulfonamide Antibiotics) (Verified Allergy, Severe, 10/07/17) Home Meds Active Scripts Docusate Sodium (COLACE) 100 Mg Capsule, 100 MG PO BID, #10 CAPSULE 0 Refills Prov:CATHY BROOKE MD 10/07/17 Rivaroxaban 20 Mg (XARELTO 20 MG) 20 Mg Tablet, 1 TAB PO QDAY for 30 Days, #30 TAB 2 Refills Prov:DENISE LUONG MD 08/01/17 Diltiazem Hcl (DILTIAZEM 24HR CD) 240 Mg Cap.er.24h, 1 CAP PO DAILY for 90 Days , #90 CAP.SR.24H 4 Refills Prov:DENISE LUONG MD 05/28/17 Hydrochlorothiazide (HYDROCHLOROTHIAZIDE) 12.5 Mg Capsule, 1 TAB PO QDAY, #90 CAPSULE 4 Refills Prov:DRE LINARES MD 02/27/17 Reported Medications Omeprazole (OMEPRAZOLE) 20 Mg Capsule.dr, 1 CAP PO BID, CAP 08/01/17 Cyanocobalamin (Vitamin B-12) (VITAMIN B-12) 1,000 Mcg Tablet, 1 TAB PO DAILY 08/01/17 Calcium Carb & Cit/Vitamin D3 (CALCIUM + D3 ER TABLET) 1 Each Tablet.er, 1 TAB PO BID Vit D3 800 Calcium 600 08/01/17 [Brain-Protex] No Conflict Check, 1 TAB PO DAILY 05/08/16 [Skeletal Strength] No Conflict Check, 1 TAB PO DAILY 05/08/16 [Super Supplemental] No Conflict Check, 1 TAB PO DAILY 05/08/16 Gelatin (GELATIN) 600 Mg Capsule, 1300 MG PO DAILY, CAPSULE 05/08/16 Past Medical/Surgical History Past medical history significant for hypertension, history of asthma, history of GERD with hiatal hernia. History of hernia repair in 2010. History of cervical spine fracture C3 history of benign prostatic hypertrophy. History of carpal tunnel release. Hx Smoking: No Smoking Status: Former Smoker Hx Substance Use Disorder: No Hx Alcohol Use: Yes (daily, scotch or whiskey (couple shots)) Constitutional Vital Sign - Last 24 Hours 10/07/17 10/07/17 10/07/17 10/07/17 13:31 13:34 13:45 13:58 Temp 97.9 Pulse 99 81 Resp 20 B/P (MAP) 131/86 131/86 (101) Pulse Ox 90 95 O2 Delivery Room Air O2 Flow Rate 2.0 10/07/17 10/07/17 10/07/17 14:00 14:33 14:49 B/P (MAP) 129/75 (93) 152/88 (109) 131/81 (98) Physical Exam General Appearance: The patient is alert, has no immediate need for airway protection and no current signs of toxicity. Eyes: Pupils equal and round no injection. Respiratory: Chest is non tender, lungs are clear to auscultation. Cardiac: regular rate and rhythm [ ] Gastrointestinal: Abdomen is soft and non tender, no masses, bowel sounds normal. Musculoskeletal: Extremities have full range of motion and are non tender. Skin: No rashes or lesions. Rectal exam reveals a nonthrombosed external hemorrhoid. Patient has a firm stool ball in the rectum. Medical Decision Making Data Points Laboratory Hematology Test 10/07/17 13:53 Stool Occult Blood (IFOB) Positive (NEGATIVE) Chemistry Test 10/07/17 13:53 Stool Occult Blood (IFOB) Positive (NEGATIVE) EKG/Imaging Imaging Acute abdomen series shows some air-fluid level and nondistended: With liquid stool. Nonspecific bowel gas pattern ED Course/Re-evaluation ED Course 10/07/2017 2:39:57 pm patient had a large bowel movement in the emergency department is feeling improved. Awaiting official results of acute abdominal series. Likely patient will be discharged home will place on Colace twice a day. Decision to Disposition Date: Oct 07, 2017 Decision to Disposition Time: 14:45 Depart Departure Latest Vital Signs Vital Signs Date Time Temp Pulse Resp B/P (MAP) Pulse Ox O2 Delivery O2 Flow Rate FiO2 10/07/17 14:49 131/81 (98) 10/07/17 13:58 81 95 10/07/17 13:45 2.0 10/07/17 13:31 97.9 20 Room Air Impression: Primary Impression: Constipation Condition: Improved Disposition: HOME OR SELF-CARE Referrals: DENISE LUONG MD (PCP) 2 Days if symptoms persist New Scripts Docusate Sodium (COLACE) 100 Mg Capsule 100 MG PO BID, #10 CAPSULE 0 Refills Prov: CATHY BROOKE MD 10/07/17 Patient Instructions: Constipation (ED) Problem Qualifiers Primary Impression: Constipation Constipation type: unspecified constipation type Qualified Codes: K59.00 - Constipation, unspecified CATHY BROOKE MD Oct 07, 2017 13:30
[2017-10-07] MEDS ORDERED: DOCU-416 PO (14:41)
--- NOTE | 2017-10-07 14:41 | RADIOLOGY IMAGING REPORT ---
FACILITY: [facility] PATIENT NAME: Manuel Patel : 1930 MR: [id number] V: [id number] EXAM DATE: ORDERING PHYSICIAN: CATHY BROOKE TECHNOLOGIST: Location: [facility] - [place], [place] Patient: Manuel Patel : 1930 Visit/Account:[id number] Date of Sevice: 10/07/2017 Exam type: ACUTE ABDOMEN SERIES 3 VIEW History: constipation Comparison: KV May 11, 2016 and chest x-ray July 09, 2017. Findings: Supine and upright views of the abdomen reveal small air-fluid levels in the nondistended colon consi stent with liquid stool. The remainder the bowel gas pattern is nonspecific. No gross evidence of o rganomegaly. There are moderate spondylotic changes in the lumbar spine. PA view the chest reveals a large hiatal hernia and cardiomegaly unchanged. Is a small amount of by basilar scarring unchanged. No evidence of acute pulmonary consolidation. There are old right-sided rib fractures present IMPRESSION: 1. Air-fluid level seen in the nondistended colon consistent with liquid stool: Large hiatal hernia, cardiomegaly and mild by basilar scarring in the lower lung louise otherwise non specific bowel gas pattern Report Dictated By: Katty Coppola MD at 10/07/2017 2:30 PM Report E-Signed By: Katty Coppola MD at 10/07/2017 2:37 PM WSN:[id number]
[2017-10-07 14:49] VITALS: BP 131/81
== END 2017-10-07 15:00 | disposition home or self-care (01) ==
LOC: ER 13:37
DX: K59.00 Constipation, unspecified (principal)
CPT/HCPCS: 74022; 82274; 99283

== ENCOUNTER 2018-05-19 07:52 | Emergency (ER) | payer MEDICARE ==
[2016-05-09 17:12] VITALS: Wt 75.0 kg
[~2018-05-19 07:52] MED LIST changes: +IPRA3AMP10 IH; -IPRA3AMP21 IH; +OMEG-11 PO; +POLY17PO25 PO
--- NOTE | 2018-05-19 07:56 | ER Report ---
History and Physical Time Seen By MD: 08:15 HPI/ROS CHIEF COMPLAINT: Shortness of breath and cough HISTORY OF PRESENT ILLNESS: Patient is an 87-year-old male who presents to the emergency department with complaint of shortness of breath and cough since Saturday. Patient has a history of pneumonia in the past. He denies any fevers or chills. Patient does state that he has had wheezing over the weekend. He denies flulike symptoms including headache or body aches. He believes he did receive his influenza vaccine this year. He denies any chest heaviness or pressure. He denies any nausea, vomiting, abdominal pain or diarrhea. He denies any recent travel by air or car. Denies any recent antibiotic use. Patient does not normally wear oxygen at home. Patient denies any history of heart attack or stroke. Patient is on anticoagulation likely secondary to atrial fibrillation/atrial flutter. Patient states he is taking his anticoagulation med ication. Patient was recently seen by primary care physician for episodes of lightheadedness. He is going to physical therapy for this. The dizziness is a chronic problem. REVIEW OF SYSTEMS: Constitutional: No fever, no chills. Eyes: No discharge. ENT: No sore throat. Cardiovascular: No chest pain, no palpitations. Respiratory: Dry cough, shortness of breath Gastrointestinal: No abdominal pain, no vomiting. Genitourinary: No hematuria. Musculoskeletal: No back pain. Skin: No rashes. Neurological: No headache. Allergies: Coded Allergies: Sulfa (Sulfonamide Antibiotics) (Verified Allergy, Severe, 10/07/17) Home Meds Active Scripts Azithromycin (ZITHROMAX) 250 Mg Tablet, 1 TAB PO QDAY for 4 Days, #4 TAB 0 Refills Prov:CATHY LORENZANA MD 05/19/18 Azithromycin (ZITHROMAX) 250 Mg Tablet, 1 TAB PO QDAY for 4 Days, #4 TAB 0 Refills 1st dose on May 20, then 1 pill a day until complete Prov:CATHY LORENZANA MD 05/19/18 Rivaroxaban 20 Mg (XARELTO 20 MG) 20 Mg Tablet, 1 TAB PO QDAY for 90 Days, #90 TAB 4 Refills Prov:DENISE LUONG MD 12/10/17 Docusate Sodium (COLACE) 100 Mg Capsule, 100 MG PO BID, #10 CAPSULE 0 Refills Prov:CATHY LORENZANA MD 10/07/17 Diltiazem Hcl (DILTIAZEM 24HR CD) 240 Mg Cap.er.24h, 1 CAP PO DAILY for 90 Days, #90 CAP.SR.24H 4 Refills Prov:DENISE LUONG MD 05/28/17 Hydrochlorothiazide (HYDROCHLOROTHIAZIDE) 12.5 Mg Capsule, 1 TAB PO QDAY, #90 CAPSULE 4 Refills Prov:DRE LINARES MD 02/27/17 Reported Medications [place]-3 Fatty Acids/Fish Oil (FISH OIL 1,000 MG CAPSULE) 1 Each Capsule, 1 EACH PO, CAPSULE 04/30/18 Psyllium Husk (Metamucil) 3.4 Gram/5.4 Gram Powder 11/18/17 Omeprazole (OMEPRAZOLE) 20 Mg Capsule.dr, 1 CAP PO BID, CAP 08/01/17 Cyanocobalamin (Vitamin B-12) (VITAMIN B-12) 1,000 Mcg Tablet, 1 TAB PO DAILY 08/01/17 Calcium Carb & Cit/Vitamin D3 (CALCIUM + D3 ER TABLET) 1 Each Tablet.er, 1 TAB PO BID Vit D3 800 Calcium 600 08/01/17 [Brain-Protex] No Conflict Check, 1 TAB PO DAILY 05/08/16 [Super Supplemental] No Conflict Check, 1 TAB PO DAILY 05/08/16 Gelatin (GELATIN) 600 Mg Capsule, 1300 MG PO DAILY, CAPSULE 05/08/16 Discontinued Reported Medications [Skeletal Strength] No Conflict Check, 1 TAB PO DAILY 05/08/16 Past Medical/Surgical History Past medical history for atrial fibrillation on anticoagulation, hypertension, right bundle branch block, asthma, gastroesophageal reflux disease, hiatal hernia, BPH, history of C3 fracture nondisplaced treated with hard collar, history of vascular surgery, history of hernia repair, history of TURP 2013, history of carpal tunnel release Hx Smoking: Yes (QUIT 10 YRS AGO, 1/2 PPD ) Smoking Status: Former Smoker Hx Substance Use Disorder: No Hx Alcohol Use: Yes (daily, scotch or whiskey ONE SM GLASS) Constitutional Vital Sign - Last 24 Hours 05/19/18 05/19/18 05/19/18 05/19/18 07:57 07:58 08:07 08:12 Temp 97.6 Pulse 92 83 Resp 22 19 B/P (MAP) 160/101 160/101 (120) Pulse Ox 86 98 O2 Delivery Room Air O2 Flow Rate 2.0 05/19/18 05/19/18 05/19/18 05/19/18 08:37 08:42 08:48 08:57 Pulse 77 69 75 Resp 18 22 21 B/P (MAP) 135/87 (103) Pulse Ox 96 96 95 05/19/18 05/19/18 05/19/18 05/19/18 09:12 09:27 09:30 09:42 Pulse 85 78 76 Resp 21 14 17 B/P (MAP) 166/110 (128) Pulse Ox 95 95 91 05/19/18 05/19/18 05/19/18 05/19/18 09:57 09:58 10:00 10:12 Pulse ??? 84 Resp 20 12 B/P (MAP) 160/113 (129) 159/90 (113) Pulse Ox 91 Physical Exam General/Constitutional: Patient is awake, alert, nontoxic and in no acute respiratory distress. Patient initially satting 86% on room air current satura tion is 88-90% on 2 L nasal cannula Head: Normocephalic and atraumatic. Eyes: Conjunctival clear, Pupils are equal and reactive to light. Extraocular muscles are intact and symmetrical. Sclera are clear and anicteric. Ears:External canals are clear. Tympanic membranes are clear with normal landmarks and light reflex. Nares: No rhinorrhea or bleeding. Turbinates are pink and moist. Oropharyngeal: Mucous membranes are moist. There is no pharyngeal erythema or exudate. There are no palatal petechiae. Uvula is midline and symmetrical. Neck: Supple, no adenopathy. Cardiovascular: Heart is regular rate and rhythm without audible murmurs, rubs or gallops. Pulmonary: Lungs are clear to auscultation bilaterally. There are no wheezes, rales, or rhonchi. Chest rise is symmetrical. Patient has no audible wheezing with forced exhalation or cough. Abdomen: Soft, nontender, no guarding or peritoneal signs. Extremities: No gross deformities, No peripheral cyanosis. Able to move all 4 extremities. Neuro: Alert and oriented X3, Skin: No rashes, skin is warm dry and well perfused. Medical Decision Making Data Points Result Diagram: 05/19/18 0803 05/19/18 08 Laboratory Hematology Test 05/19/18 08:03 05/19/18 08:20 Red Blood Count 4.96 M/uL (4.00-5.60) Mean Corpuscular Volume 90.4 fL (80.0-96.0) Mean Corpuscular Hemoglobin 29.6 pg (26.0-33.0) Mean Corpuscular Hemoglobin Concent 32.8 g/dL (32.0-36.0) Red Cell Distribution Width 15.9 % (11.5-14.5) Mean Platelet Volume 8.2 fL (7.2-11.1) Neutrophils (%) (Auto) 72.3 % (39.4-72.5) Lymphocytes (%) (Auto) 15.4 % (17.6-49.6) Monocytes (%) (Auto) 9.4 % (4.1-12.4) Eosinophils (%) (Auto) 2.5 % (0.4-6.7) Basophils (%) (Auto) 0.4 % (0.3-1.4) Nucleated RBC Relative Count (auto) 0.0 /100WBC Neutrophils # (Auto) 5.3 K/uL (2.0-7.4) Lymphocytes # (Auto) 1.1 K/uL (1.3-3.6) Monocytes # (Auto) 0.7 K/uL (0.3-1.0) Eosinophils # (Auto) 0.2 K/uL (0.0-0.5) Basophils # (Auto) 0.0 K/uL (0.0-0.1) Nucleated RBC Absolute Count (auto) 0.00 K/uL Prothrombin Time 20.5 seconds (12.0-14.4) Prothromb Time International Ratio 1.73 Activated Partial Thromboplast Time 47 seconds (23-35) Sodium Level 136 mmol/L (137-145) Potassium Level 4.2 mmol/L (3.5-5.0) Chloride Level 95 mmol/L (98-107) Carbon Dioxide Level 28 mmol/L (22-30) Blood Urea Nitrogen 13 mg/dl (9-21) Creatinine 0.80 mg/dl (0.66-1.25) Glomerular Filtration Rate Calc > 60.0 Random Glucose 125 mg/dl (75-110) Calcium Level 8.9 mg/dl (8.4-10.2) Total Bilirubin 1.8 mg/dl (0.2-1.3) Aspartate Amino Transf (AST/SGOT) 18 U/L (0-35) Alanine Aminotransferase (ALT/SGPT) 16 U/L (0-56) Alkaline Phosphatase 67 U/L (0-126) Troponin I 0.013 ng/ml B-Type Natriuretic Peptide 51 pg/ml (0-100) Total Protein 8.0 g/dl (6.3-8.2) Albumin 4.0 g/dl (3.5-5.0) Influenza Virus Type A (PCR) Negative (NEGATIVE) Influenza Virus Type B (PCR) Negative (NEGATIVE) Chemistry Test 05/19/18 08:03 05/19/18 08:20 White Blood Count 7.4 k/uL (4.5-11.0) Red Blood Count 4.96 M/uL (4.00-5.60) Hemoglobin 14.7 g/dL (14.0-18.0) Hematocrit 44.8 % (42.0-52.0) Mean Corpuscular Volume 90.4 fL (80.0-96.0) Mean Corpuscular Hemoglobin 29.6 pg (26.0-33.0) Mean Corpuscular Hemoglobin Concent 32.8 g/dL (32.0-36.0) Red Cell Distribution Width 15.9 % (11.5-14.5) Platelet Count 238 K/uL (150-450) Mean Platelet Volume 8.2 fL (7.2-11.1) Neutrophils (%) (Auto) 72.3 % (39.4-72.5) Lymphocytes (%) (Auto) 15.4 % (17.6-49.6) Monocytes (%) (Auto) 9.4 % (4.1-12.4) Eosinophils (%) (Auto) 2.5 % (0.4-6.7) Basophils (%) (Auto) 0.4 % (0.3-1.4) Nucleated RBC Relative Count (auto) 0.0 /100WBC Neutrophils # (Auto) 5.3 K/uL (2.0-7.4) Lymphocytes # (Auto) 1.1 K/uL (1.3-3.6) Monocytes # (Auto) 0.7 K/uL (0.3-1.0) Eosinophils # (Auto) 0.2 K/uL (0.0-0.5) Basophils # (Auto) 0.0 K/uL (0.0-0.1) Nucleated RBC Absolute Count (auto) 0.00 K/uL Prothrombin Time 20.5 seconds (12.0-14.4) Prothromb Time International Ratio 1.73 Activated Partial Thromboplast Time 47 seconds (23-35) Glomerular Filtration Rate Calc > 60.0 Calcium Level 8.9 mg/dl (8.4-10.2) Total Bilirubin 1.8 mg/dl (0.2-1.3) Aspartate Amino Transf (AST/SGOT) 18 U/L (0-35) Alanine Aminotransferase (ALT/SGPT) 16 U/L (0-56) Alkaline Phosphatase 67 U/L (0-126) Troponin I 0.013 ng/ml B-Type Natriuretic Peptide 51 pg/ml (0-100) Total Protein 8.0 g/dl (6.3-8.2) Albumin 4.0 g/dl (3.5-5.0) Influenza Virus Type A (PCR) Negative (NEGATIVE) Influenza Virus Type B (PCR) Negative (NEGATIVE) Coagulation Test 05/19/18 08:03 Prothrombin Time 20.5 seconds Prothromb Time International Ratio 1.73 Activated Partial Thromboplast Time 47 seconds Microbiology Microbiology Date/Time Source Procedure Growth Status 05/19/18 09:01 Blood Peripheral Draw Blood Culture - Preliminary NO GROWTH SO FAR, SET LATE. REINCUBATED Resulted 05/19/18 08:05 Blood Peripheral Draw Blood Culture - Preliminary NO GROWTH SO FAR, SET LATE. REINCUBATED Resulted EKG/Imaging EKG Interpretation EKG shows ventricular rate of 70 bpm with atrial flutter with 3:1 block which is similar to prior EKG from August 2017. Monitor Interpretation: Atrial Flutter Imaging X-ray of the chest interpreted by myself appears to show a right lower lobe infiltrate that is seen on both the PA and lateral views that does not appear on chest x-ray from 08/05/2017. Radiology felt that this was scarring however given the patient's symptoms at present that pneumonia is more likely and will treat appropriately. ED Course/Re-evaluation ED Course 05/19/2018 8:30:05 am After history and physical exam was performed differential diagnosis was formulated which includes but is not limited to infectious causes such as influenza or pneumonia, asthma exacerbation, cardiac causes such as ischemia, also consider pulmonary embolism however patient is anticoagulated so this is less likely. Physical exam does not suggest anemia although this could be a cause as well. 05/19/2018 8:57:56 am I spoke with the patient's primary care physician ; explained likely diagnosis for pneumonia plan will be IV Rocephin followed by oral Zithromax place the patient on O2 normal the next week. Patient will follow up with Dr. Luong for test of cure Decision to Disposition Date: May 19, 2018 Decision to Disposition Time: 11:00 Depart Departure Latest Vital Signs Vital Signs Date Time Temp Pulse Resp B/P (MAP) Pulse Ox O2 Delivery O2 Flow Rate FiO2 05/19/18 10:12 84 12 91 05/19/18 10:00 159/90 (113) 05/19/18 08:12 2.0 05/19/18 07:57 97.6 Room Air Impression: Primary Impression: Community acquired pneumonia Condition: Improved Disposition: HOME OR SELF-CARE Referrals: DENISE LUONG MD (PCP) Follow-up by phone in the next 7 days, if symptoms worsen follow up sooner New Scripts Azithromycin (ZITHROMAX) 250 Mg Tablet 1 TAB PO QDAY for 4 Days, #4 TAB 0 Refills Prov: CATHY LORENZANA MD 05/19/18 Azithromycin (ZITHROMAX) 250 Mg Tablet 1 TAB PO QDAY for 4 Days, #4 TAB 0 Refills 1st dose on May 20, then 1 pill a day until complete Prov: CATHY LORENZANA MD 05/19/18 Departure Forms: ER Transition Record, Home Oxygen, Nebulizer RX, Home Oxygen Company Chosen by Patient: Durable Medical Equipment-Oxygen: Portable Oxygen Gas Reason for Use/Diagnosis: pneumonia Start Date of the Order: May 19, 2018 Dosage or Concentration (if applicable) - LPM: 2 Route of Administration (if applicable): Nasal Cannula Frequency of Use: Continuous Duration Home O2 Required: 7 Duration Units: Days Room Air Oxygen Saturation: 85 ER Prescribing Physician's Name: Cathy Lorenzana NPI Numbers for Local ER MDs: Harriett [id number] Medications Reconciliation, Patient Portal Information Patient Instructions: Community Acquired Pneumonia (DC) Problem Qualifiers Primary Impression: Community acquired pneumonia Laterality: right Lung location: lower lobe of lung Qualified Codes: J18.1 - Lobar pneumonia, unspecified organism CATHY LORENZANA MD May 19, 2018 07:56
--- NOTE | 2018-05-19 08:22 | EKG ---
[place] [facility] [place] NAME: EMI YUAN : [id number] MR: [id number] V: [id number] EXAM DATE: ORDERING PHYSICIAN: CATHY BROOKE TECHNOLOGIST: KINGA Orozco Reason : SOB Blood Pressure : / mmHG Vent. Rate : 071 BPM Atrial Rate : 326 BPM P-R Int : 000 ms QRS Dur : 166 ms QT Int : 450 ms P-R-T Axes : 000 060 -47 degrees QTc Int : 489 ms Atrial flutter Right bundle branch block Abnormal ECG Confirmed by KAJAL SOLSI ([id number]) on 05/19/2018 12:49:26 PM Referred By: EDWARDO Confirmed By:KAJAL SOLIS
[2018-05-19 08:25] LABS: PLATELET COUNT, AUTOMATED 238 K/uL (150-450)
[2018-05-19 08:31] LABS: INR 1.73
--- NOTE | 2018-05-19 08:46 | RADIOLOGY IMAGING REPORT ---
FACILITY: [facility] PATIENT NAME: Manuel Patel : 1930 MR: [id number] V: [id number] EXAM DATE: ORDERING PHYSICIAN: CATHY BROOKE TECHNOLOGIST: Location: [facility] - [place] Patient: Manuel Patel : 1930 Visit/Account:[id number] Date of Sevice: 05/19/2018 CHEST PA LAT HISTORY: Chest pain. COMPARISON: 08/27/2017. FINDINGS: Lines/tubes: None. Lungs/pleura: Mild scarring or atelectasis in the lung bases. No pleural effusion or pneumothorax. Heart: Negative. Mediastinum: Hiatal hernia. Bony structures/body wall: Negative. IMPRESSION: 1. Mild scarring or atelectasis in the lung bases. Otherwise no acute cardiopulmonary process. 2. Hiatal hernia. Report Dictated By: Hayes Chisholm MD at 05/19/2018 8:39 AM Report E-Signed By: Hayes Chisholm MD at 05/19/2018 8:40 AM WSN:[id number]
[2018-05-19] MEDS ORDERED: AZITHROMYCIN 250 MG TAB PO ONE (08:55)
[2018-05-19] MEDS ORDERED: cefTRIAXone 1 GM VIAL IVP ONE (08:55)
[2018-05-19] MEDS ORDERED: AZIT-1 PO ×2 (08:59→10:17)
[2018-05-19] MEDS ORDERED: NS(*) 0.9% 500 ML BAG 500 ML IV ONE (09:25)
[2018-05-19 10:00] VITALS: BP 159/90
== END 2018-05-19 10:30 | disposition home or self-care (01) ==
LOC: ER 08:27
DX: J18.1 Lobar pneumonia, unspecified organism (principal)
CPT/HCPCS: 36415; 71046; 83880; 84484; 85025; 85610; 85730; 87040; 87502; 93005; 96361; 96374; 99284; J0696; J7040; Q0144; 82040; 82247; 82310; 82374; 82435; 82565; 82947; 84075; 84132; 84155; 84295; 84450; 84460; 84520

== ENCOUNTER 2018-06-01 06:46 | Emergency (ER) | payer MEDICARE ==
[2016-05-09 17:12] VITALS: Wt 74.8 kg
[2018-06-01] MEDS ORDERED: TRANEXAMIC AC 1000 MG/10ML SDV ONE (07:31)
[2018-06-01] MEDS ORDERED: EPINEPHrine 0.1% NA SOL 30 ML ONE (07:54)
--- NOTE | 2018-06-01 08:35 | ER Report ---
History and Physical Time Seen By MD: 07:10 Hx. of Stated Complaint: patient reports nosebleed since 5am. patient is on xarelto. bleeding controlled at this time HPI/ROS Nose bleed since 0530. On Xarelto. Recently placed on home [place] oxygen after an admission for pneumonia. No other trauma. Remainder of the 14 system rev: Yes Allergies: Coded Allergies: Sulfa (Sulfonamide Antibiotics) (Verified Allergy, Severe, 10/07/17) Home Meds Active Scripts Hydrochlorothiazide (HYDROCHLOROTHIAZIDE) 12.5 Mg Capsule, 1 TAB PO QDAY, #90 CAPSULE 4 Refills Prov:DENISE LUONG MD 06/16/18 Rivaroxaban 20 Mg (XARELTO 20 MG) 20 Mg Tablet, 1 TAB PO QDAY for 90 Days, #90 TAB 4 Refills Prov:DENISE LUONG MD 12/10/17 Diltiazem Hcl (DILTIAZEM 24HR CD) 240 Mg Cap.er.24h, 1 CAP PO DAILY for 90 Days, #90 CAP.SR.24H 4 Refills Prov:DENISE LUONG MD 05/28/17 Reported Medications [A-D-K 10 Biote] No Conflict Check, 1 CAP PO DAILY 05/22/18 [place]-3 Fatty Acids/Fish Oil (FISH OIL 1,000 MG CAPSULE) 1 Each Capsule, 1 EACH PO, CAPSULE 04/30/18 Psyllium Husk (Metamucil) 3.4 Gram/5.4 Gram Powder 11/18/17 Omeprazole (OMEPRAZOLE) 20 Mg Capsule.dr, 1 CAP PO DAILY, CAP 08/01/17 Cyanocobalamin (Vitamin B-12) (VITAMIN B-12) 1,000 Mcg Tablet, 1 TAB PO DAILY 08/01/17 Calcium Carb & Cit/Vitamin D3 (CALCIUM + D3 ER TABLET) 1 Each Tablet.er, 1 TAB PO BID Vit D3 800 Calcium 600 08/01/17 [Brain-Protex] No Conflict Check, 1 TAB PO DAILY 05/08/16 Reviewed Nurses Notes: Yes Old Medical Records Reviewed: Yes Hx Smoking: Yes (QUIT 10 YRS AGO, 1/2 PPD ) Smoking Status: Former Smoker Hx Substance Use Disorder: No Hx Alcohol Use: Yes (daily, scotch or whiskey ONE SM GLASS) Constitutional Physical Exam GE: Alert and oriented in NAD Head: NCAT Nose: actively bleeding from left nares, bleeding controlled with direct pressure CV: irregular rate/rhythm Lungs: cta b/l Medical Decision Making ED Course/Re-evaluation ED Course Multiple attempts made to stop bleeding of nares. Used was a combination of atomized tranexemic acid, phenylephrine, and lidocaine with epi in combination with direct pressure. Ultimately a rhino rocket was placed, and bleeding sub sided Decision to Disposition Date: Jun 01, 2018 Decision to Disposition Time: 10:35 Depart Departure Latest Vital Signs Impression: Primary Impression: Anterior epistaxis Condition: Improved Disposition: HOME OR SELF-CARE Referrals: DENISE LUONG MD (PCP) Patient Instructions: Nosebleed (ED) KATHERINE ARRIAGA MD Jun 01, 2018 08:35
[2018-06-01] MEDS ORDERED: SILVER NITRATE SWABS 10 PKG TP ONE (12:30)
[2018-06-01 13:00] VITALS: BP 123/71
[2018-06-01] MEDS ORDERED: PHENYLEPHRINE 0.5% 15 ML BTL ONE (18:30)
[2018-06-16] MEDS ORDERED: HYDR12.556 PO (14:38)
== END 2018-06-01 13:10 | disposition home or self-care (01) ==
LOC: ER 08:27
DX: R04.0 Epistaxis (principal)
CPT/HCPCS: 30901; 99282; A9270

== ENCOUNTER → 2018-06-01 | Outpatient (CLI) | payer MEDICARE ==
[2016-05-09 17:12] VITALS: BMI 24.4
[~2018-06-01] MED LIST changes: +BIOTE PO; +[UNRECOGNIZED DRUG - OTHER] PO
== END ==
LOC: AMB 06:27
PROVIDERS: ATTEND Nurse Practitioner
DX: R04.0 Epistaxis (principal)
CPT/HCPCS: A0425; A0429

== ENCOUNTER → 2018-06-10 | Outpatient (CLI) | payer MEDICARE ==
[2016-05-09 17:12] VITALS: BMI 24.4
== END ==
LOC: LAB 14:49
PROVIDERS: ATTEND Family Medicine
DX: E55.9 Vitamin D deficiency, unspecified (principal)
CPT/HCPCS: 36415; 82306

== ENCOUNTER 2018-07-30 08:15 | Outpatient (RCR) | payer MEDICARE ==
[2016-05-09 17:12] VITALS: BMI 24.4
--- NOTE | 2018-05-07 17:11 | PT INITIAL EVALUATION ---
MEDICAL DIAGNOSIS: balance problem TREATMENT DIAGNOSIS: same DATE OF ONSET: 02/04/18 SUBJECTIVE: Manuel Patel presents to physical therapy with complaints of difficulties with his balance. He reports that he has not had a fall recently; however, he reports that he feels like he is on the verge of falling especially when he is walking. He reports that he has difficulty with going up and down stairs that he would like to improve. He denies any dizziness or spinning. He reports that he ambulates with a cane in the community and inside his garage other than that he reports that he ambulates independently. He denies any aches and pains. He reports that he does have a chair lift that helps him go up and down stairs that was installed approximately 2 months ago. REHAB PROBLEM LIST: Decreased Strength Decreased Endurance Decreased Balance Decreased Function Decreased ADL's Decreased Mobility Decreased Gait PREVIOUS MEDICAL HISTORY: See EMR OCCUPATION: Retired OBJECTIVE: Posture: He demonstrates forward head posture, increased thoracic kyphosis, decreased lumbar lordosis along with trunk flexed. ROM: B LE's full within functional limits. Strength: B hip abduction, extension, flexion, B knee flexion and extension, and B ankle PF and DF: 4/5. B hip adduction: 4+/5. Special Tests: Venegas balance test: 43/56. functional gait assessment: . Mobility: Modified independent Gait: With no AD, he demonstrated the following gait mechanics: stooped posture, equal step lengths (however, they are shorter than normal), decreased B foot clearance, decreased pelvic rotation, decreased B hip flexion, B knee flexion, and B ankle DF during the gait cycle. Functional gait assessment: . Difficulties with the following during the assessment: decreased velocity, unable to change gait speed, decreased speed with head turns, decreased step with stepping over obstacles, increased veering to the R with gait. Balance: Venegas balance test: 43/56. He demonstrate difficulties with eyes closed, decreased base of support, and single leg stance. ASSESSMENT: Manuel will benefit from skilled physical therapy addressing the listed impairments to improve function and QOL. Short Term Goals 4 weeks: Pt will demonstrate significant improvement in functional gait assessment from baseline () to to improve function and QOL. 8 weeks: Pt will demonstrate significant improvement in functional gait assessment from baseline to to improve function and QOL. 8 weeks: Pt will demonstrate significant improvement in venegas balance test from baseline (43/56) to 48/56 or better to improve independence and decrease fall risk to prevent falls and improve QOL. Patient's Goals improve balance, be able to go up and down stairs better PLAN: Patient to be seen for Manual Therapy/STM/MET Strengthening/condition Range of Motion Work Hardening/Cond Stretching Neuromuscular Re-ed Closed Chain Program Posture/Body mechanics Gait Trg/Balance Trg Home Exercise Program Therapeutic Activities 2x/Week for 2 Months If you have any questions, comments, or concerns about this report or plan, please contact me at . Thank you, Jose Houston, PT, DPT MTDD
--- NOTE | 2018-06-18 06:14 | PT PLAN OF CARE ---
Physician: Jennyfer Vee MD Patient is being seen: 2x/week Therapist: Jose Houston, PT, DPT Medical Diagnosis: balance problem Treatment Diagnosis: same Date of Onset: 02/04/18 Date of Initial Evaluation: 05/07/18 Date patient was last seen: 06/16/18 Number of treatments: 10 Number of cancellations/No shows: 2 INTERVENTIONS: Manual Therapy/STM/MET Strengthening/condition Range of Motion Work Hardening/Cond Stretching Neuromuscular Re-ed Closed Chain Program Posture/Body mechanics Gait Trg/Balance Trg Home Exercise Program Therapeutic Activities GOALS: 4 weeks: Pt will demonstrate significant improvement in functional gait assessment from baseline () to to improve function and QOL. MET 8 weeks: Pt will demonstrate significant improvement in functional gait assessment from baseline to to improve function and QOL. MET 8 weeks: Pt will demonstrate significant improvement in diaz balance test from baseline (43/56) to 48/56 or better to improve independence and decrease fall risk to prevent falls and improve QOL. Not Met PATIENT'S GOAL: improve balance, be able to go up and down stairs better Status of Patient's Goals:Progressing Patient Compliance: Good Prognosis: Good Reasons for continuing therapy: This is a progress note for Manuel Patel. He reports that he doing well other than having bloody noses that take forever to stop. He denies any pain or dizziness. He is progressing well within PT and has demonstrated the following improvements: increased his diaz balance test from 43/56 to 47/56, which is a significant improvement. Furthermore, he demonstrated a significant improvement with functional gait assessment from to . As a result of these gains, he has significantly reduced his fall risk over the last 5 weeks. However, he made minimal gains with his B LE strength, which we will continue to focus on along with static and dynamic balance. We will continue 10 visits or less to continue to focus on strength along with static and dynamic balance. Posture: He demonstrates forward head posture, increased thoracic kyphosis, decreased lumbar lordosis along with trunk flexed. ROM: B LE's full within functional limits. Strength: B hip abduction, extension, flexion, B knee flexion and extension, and B ankle PF and DF: 4/5. B hip adduction: 4+/5. Special Tests: Diaz balance test: 47/. functional gait assessment: . Mobility: Modified independent If you have any questions, please contact me at [phone]. Thank you, Jose Houston, PT, DPT MTDD
--- NOTE | 2018-07-30 09:22 | PT PLAN OF CARE ---
Physician: Jennyfer Vee MD Patient is being seen: 2x/week Therapist: Jose Houston, PT, DPT Medical Diagnosis: balance problem Treatment Diagnosis: same Date of Onset: 02/04/18 Date of Initial Evaluation: 05/07/18 Date patient was last seen: 07/30/18 Number of treatments: 20 Number of cancellations/No shows: 0 INTERVENTIONS: Manual Therapy/STM/MET Strengthening/condition Range of Motion Work Hardening/Cond Stretching Neuromuscular Re-ed Closed Chain Program Posture/Body mechanics Gait Trg/Balance Trg Home Exercise Program Therapeutic Activities GOALS: 4 weeks: Pt will demonstrate significant improvement in functional gait assessment from baseline () to to improve function and QOL. MET 8 weeks: Pt will demonstrate significant improvement in functional gait assessment from baseline to to improve function and QOL. MET 8 weeks: Pt will demonstrate significant improvement in diaz balance test from baseline () to 48 or better to improve independence and decrease fall risk to prevent falls and improve QOL. Not Met PATIENT'S GOAL: improve balance, be able to go up and down stairs better Status of Patient's Goals: Starting to plateau Patient Compliance: Good Prognosis: Good Reasons for continuing therapy: This is a progress note for Manuel Patel. He reports that he is feeling well. He reports that he has his good days and bad days. He is unsure if today is a good day or a bad day. He reports that he had his feet worked on and he feels better today. He demonstrates minimal gains with diaz balance test and functional gait assessment, but the improvements were not significant. Therefore, since his gains were not significant and he is starting to plateau; therefore, we cannot continue much further with him based on these results. He reports that he does not want to stop coming or else he will lose everything that he has gained; therefore, we are going to come up with a home exercise program that he will perform here on his own time, but we will take the next two weeks to ensure that he is independent on his program prior to discharge. Once he is fully independent, we will discharge from formal PT. Posture: He demonstrates forward head posture, increased thoracic kyphosis, decreased lumbar lordosis along with trunk flexed. ROM: B LE's full within functional limits. Strength: B hip abduction, extension, flexion, B knee flexion and extension, and B ankle PF and DF: 4/5. B hip adduction: 4+/5. Special Tests: Diaz balance test: 45/56. functional gait assessment: . Mobility: Modified independent If you have any questions, please contact me at [phone]. Thank you, Jose Houston, PT, DPT MTDD
== END 2018-08-05 ==
LOC: PT 08:15
PROVIDERS: ATTEND Family Medicine
DX: R26.89 Other abnormalities of gait and mobility (principal)
CPT/HCPCS: 97162

== ENCOUNTER 2018-08-12 09:00 | Outpatient (RCR) | payer MEDICARE ==
[2016-05-09 17:12] VITALS: BMI 24.4
--- NOTE | 2018-08-07 13:20 | PT PLAN OF CARE ---
Physician: Jennyfer Vee MD Patient is being seen: 2x/week Therapist: Jose Houston, PT, DPT Medical Diagnosis: balance problem Treatment Diagnosis: same Date of Onset: 02/04/18 Date of Initial Evaluation: 05/07/18 Date patient was last seen: 08/07/18 Number of treatments: 21 Number of cancellations/No shows: 3 INTERVENTIONS: Manual Therapy/STM/MET Strengthening/condition Range of Motion Work Hardening/Cond Stretching Neuromuscular Re-ed Closed Chain Program Posture/Body mechanics Gait Trg/Balance Trg Home Exercise Program Therapeutic Activities GOALS: 4 weeks: Pt will demonstrate significant improvement in functional gait assessment from baseline () to to improve function and QOL. MET 8 weeks: Pt will demonstrate significant improvement in functional gait assessment from baseline to to improve function and QOL. MET 8 weeks: Pt will demonstrate significant improvement in diaz balance test from baseline () to 48 or better to improve independence and decrease fall risk to prevent falls and improve QOL. Not Met PATIENT'S GOAL: improve balance, be able to go up and down stairs better Status of Patient's Goals: Starting to plateau Patient Compliance: Good Prognosis: Good Reasons for continuing therapy: This is a progress note for Manuel Patel. He reports that he is feeling well. He reports that he has his good days and bad days. He is unsure if today is a good day or a bad day. He reports that he had his feet worked on and he feels better today. He demonstrates minimal gains with diaz balance test and functional gait assessment, but the improvements were not significant. Therefore, since his gains were not significant and he is starting to plateau; therefore, we cannot continue much further with him based on these results. He reports that he does not want to stop coming or else he will lose everything that he has gained; therefore, we are going to come up with a home exercise program that he will perform here on his own time, but we will take the next two weeks to ensure that he is independent on his program prior to discharge. Once he is fully independent, we will discharge from formal PT. Posture: He demonstrates forward head posture, increased thoracic kyphosis, decreased lumbar lordosis along with trunk flexed. ROM: B LE's full within functional limits. Strength: B hip abduction, extension, flexion, B knee flexion and extension, and B ankle PF and DF: 4/5. B hip adduction: 4+/5. Special Tests: Diaz balance test: 45/56. functional gait assessment: . Mobility: Modified independent If you have any questions, please contact me at [phone]. Thank you, Jose Houston, PT, DPT MTDD
[2018-08-15] MEDS ORDERED: DOCU250C70 PO (08:49)
[2018-08-15] MEDS ORDERED: CYAN50005 PO (08:49)
[2018-08-17] MEDS ORDERED: DOXY-179 PO (09:00)
[2018-08-17] MEDS ORDERED: CEF300 PO (09:00)
--- NOTE | 2018-08-18 07:15 | PT PLAN OF CARE ---
Physician: Jennyfer Vee MD Patient is being seen: 2x/week Therapist: Jsoe Houston, PT, DPT Medical Diagnosis: balance problem Treatment Diagnosis: same Date of Onset: 02/04/18 Date of Initial Evaluation: 05/07/18 Date patient was last seen: 08/14/18 Number of treatments: 22 Number of cancellations/No shows: 2 INTERVENTIONS: Manual Therapy/STM/MET Strengthening/condition Range of Motion Work Hardening/Cond Stretching Neuromuscular Re-ed Closed Chain Program Posture/Body mechanics Gait Trg/Balance Trg Home Exercise Program Therapeutic Activities GOALS: 4 weeks: Pt will demonstrate significant improvement in functional gait assessment from baseline () to to improve function and QOL. MET 8 weeks: Pt will demonstrate significant improvement in functional gait assessment from baseline to to improve function and QOL. MET 8 weeks: Pt will demonstrate significant improvement in diaz balance test from baseline (43) to 48/56 or better to improve independence and decrease fall risk to prevent falls and improve QOL. Not Met PATIENT'S GOAL: improve balance, be able to go up and down stairs better Status of Patient's Goals: Starting to plateau Patient Compliance: Good Prognosis: Good Reasons for continuing therapy: This is a discharge note for Manuel Patel. He reports that he is feeling well. He reports that he has his good days and bad days. He is unsure if today is a good day or a bad day. He reports that he had his feet worked on and he feels better today. He demonstrates minimal gains with diaz balance test and functional gait assessment, but the improvements were not significant. Therefore, since his gains were not significant and he is starting to plateau; therefore, we cannot continue much further with him based on these results. However, he was admitted to the hospital and will be discharge from PT. Posture: He demonstrates forward head posture, increased thoracic kyphosis, decreased lumbar lordosis along with trunk flexed. ROM: B LE's full within functional limits. Strength: B hip abduction, extension, flexion, B knee flexion and extension, and B ankle PF and DF: 4/5. B hip adduction: 4+/5. Special Tests: Diaz balance test: 45/56. functional gait assessment: . Mobility: Modified independent If you have any questions, please contact me at [phone]. Thank you, Jose Houston, PT, DPT MTDD
== END 2018-08-12 18:00 | disposition home or self-care (01) ==
LOC: PT 09:00
PROVIDERS: ATTEND Family Medicine
DX: R26.89 Other abnormalities of gait and mobility (principal)